=== PATIENT | male | born 1940 | race Caucasian/White ===

== ENCOUNTER 2020-05-14 12:01 | Inpatient (IN) ==
[2020-05-14] MEDS ORDERED: DEXAMETHASONE SOD INJ 10 MG/ML VIAL IV ONE (12:31)
--- NOTE | 2020-05-14 12:51 | Emergency Department Note ---
History of Present Illness General Chief complaint: Cardiac Assessment Stated complaint: Back pain @ surgical site w/ EKG changes Time Seen by Provider: 05/14/20 12:02 History of Present Illness Provider complaint: EKG changes fever hypoxia Onset (ago): day(s) 1 Associated symptoms: + fever/chills, + shortness of breath and + weakness; no chest pain, no cough and no headaches 79-year-old male from [facility] presents emergency department with EKG changes, hypoxia, and fever. Patient is at [facility] after suffering repeated falls and was admitted to [facility] for new onset atrial flutter and rhabdomyolysis. Patient is on Eliquis. Patient is also on digoxin. Patient states he feels weak as he normally does. He denies any chest pain or difficulty breathing at this time. Per the documentation sent by Cassie RICHEY from [facility] at 830 this morning the nurse reported the patient had temperature of nine 9.7 and oxygen saturation 86% on room air. Patient was placed on 2 L of oxygen which improved his oxygen saturation. An EKG was conducted and she a new left bundle branch block. Home Medications Medication Instructions Recorded Confirmed Type amlodipine 5 mg PO DIRECTED 05/14/20 05/14/20 History apixaban [Eliquis] 5 mg PO DIRECTED 05/14/20 05/14/20 History bimatoprost [Lumigan] 1 drp OPB DIRECTED 05/14/20 05/14/20 History digoxin 250 mcg PO DIRECTED 05/14/20 05/14/20 History gabapentin 300 mg PO DIRECTED 05/14/20 05/14/20 History metformin 500 mg PO DIRECTED 05/14/20 05/14/20 History potassium chloride 10 meq PO DIRECTED 05/14/20 05/14/20 History Past Med/Surg History Medical History (Updated 05/14/20 @ 15:46 by Gabriel Bah) Atrial flutter CVA (cerebral vascular accident) HTN (hypertension) No pertinent family history Recurrent falls Rhabdomyolysis Rib fracture UTI (urinary tract infection) Surgical History (Updated 05/14/20 @ 12:50 by Gabriel Bah) No pertinent past surgical history Social History Smoking Status: Former smoker Feels Safe at Home: Yes Review of Systems A total of 10 systems reviewed and were otherwise negative Physical Exam Vital Signs Vital Signs - 24 hr 05/14/20 12:11 05/14/20 12:12 05/14/20 12:16 Temperature 36.9 C Temperature Source Oral Pulse Rate 70 69 72 Pulse Rate [Apical] Pulse Rate from SpO2 Sensor 70 Respiratory Rate 19 17 18 Blood Pressure 131/62 131/62 Blood Pressure [Left Arm] Blood Pressure Mean 78 85 Blood Pressure Mean [Left Arm] Pulse Oximetry 94 94 Oxygen Delivery Method Room Air Room Air Oxygen Flow Rate Sepsis Recent Fever Within 48 Hours No Sepsis New/Unexplained Change in Mental Status N/A Sepsis Action Taken by Nursing No Action Required 05/14/20 12:20 05/14/20 12:30 05/14/20 12:40 Temperature Temperature Source Pulse Rate 65 69 66 Pulse Rate [Apical] Pulse Rate from SpO2 Sensor 68 69 66 Respiratory Rate 22 24 Blood Pressure Blood Pressure [Left Arm] Blood Pressure Mean Blood Pressure Mean [Left Arm] Pulse Oximetry 92 93 98 Oxygen Delivery Method Room Air Oxygen Flow Rate Sepsis Recent Fever Within 48 Hours Sepsis New/Unexplained Change in Mental Status Sepsis Action Taken by Nursing 05/14/20 12:50 05/14/20 12:53 05/14/20 13:00 Temperature Temperature Source Pulse Rate 63 66 65 Pulse Rate [Apical] Pulse Rate from SpO2 Sensor 63 67 65 Respiratory Rate 24 23 Blood Pressure 127/61 128/62 Blood Pressure [Left Arm] Blood Pressure Mean 84 88 Blood Pressure Mean [Left Arm] Pulse Oximetry 98 99 93 Oxygen Delivery Method Oxygen Flow Rate Sepsis Recent Fever Within 48 Hours Sepsis New/Unexplained Change in Mental Status Sepsis Action Taken by Nursing 05/14/20 13:01 05/14/20 13:03 05/14/20 13:10 Temperature Temperature Source Pulse Rate 65 64 Pulse Rate [Apical] 66 Pulse Rate from SpO2 Sensor 65 64 Respiratory Rate 24 20 24 Blood Pressure Blood Pressure [Left Arm] 128/62 Blood Pressure Mean Blood Pressure Mean [Left Arm] 84 Pulse Oximetry 93 97 98 Oxygen Delivery Method Room Air Oxygen Flow Rate Sepsis Recent Fever Within 48 Hours Sepsis New/Unexplained Change in Mental Status Sepsis Action Taken by Nursing 05/14/20 13:20 05/14/20 13:30 05/14/20 13:31 Temperature Temperature Source Pulse Rate 65 64 65 Pulse Rate [Apical] Pulse Rate from SpO2 Sensor 62 64 65 Respiratory Rate 22 22 Blood Pressure 119/60 Blood Pressure [Left Arm] Blood Pressure Mean 89 Blood Pressure Mean [Left Arm] Pulse Oximetry 98 98 98 Oxygen Delivery Method Oxygen Flow Rate Sepsis Recent Fever Within 48 Hours Sepsis New/Unexplained Change in Mental Status Sepsis Action Taken by Nursing 05/14/20 13:40 05/14/20 13:50 05/14/20 14:00 Temperature Temperature Source Pulse Rate 62 63 62 Pulse Rate [Apical] Pulse Rate from SpO2 Sensor 63 64 62 Respiratory Rate 22 24 Blood Pressure 121/67 Blood Pressure [Left Arm] Blood Pressure Mean 89 Blood Pressure Mean [Left Arm] Pulse Oximetry 99 97 99 Oxygen Delivery Method Nasal Cannula Oxygen Flow Rate 1 Sepsis Recent Fever Within 48 Hours Sepsis New/Unexplained Change in Mental Status Sepsis Action Taken by Nursing 05/14/20 14:01 05/14/20 14:10 05/14/20 14:20 Temperature Temperature Source Pulse Rate 69 64 Pulse Rate [Apical] Pulse Rate from SpO2 Sensor 64 63 Respiratory Rate 18 24 21 Blood Pressure Blood Pressure [Left Arm] Blood Pressure Mean Blood Pressure Mean [Left Arm] Pulse Oximetry 98 100 Oxygen Delivery Method Nasal Cannula Nasal Cannula Oxygen Flow Rate 1 1 Sepsis Recent Fever Within 48 Hours Sepsis New/Unexplained Change in Mental Status Sepsis Action Taken by Nursing Physical Exam GENERAL: He is oriented to person, place, and time. He appears well-developed and well-nourished. He does not appear distressed. HENT: Exam performed. - Head: Normocephalic and atraumatic. - Right Ear: External ear normal. No mastoid tenderness. - Left Ear: External ear normal. No mastoid tenderness. - Mouth/Throat: The oropharynx is clear and moist. No trismus in the jaw. No dental abscesses or uvula swelling. No oropharyngeal exudate or tonsillar abscesses. EYES: Conjunctivae and EOM are normal. Pupils are equal, round, and reactive to light. Right eye exhibits no discharge. Left eye exhibits no discharge. No scleral icterus. NECK: Normal range of motion. Neck supple. No JVD present. No spinous process tenderness present. No carotid bruit present. No rigidity. No tracheal deviation and normal range of motion present. No Brudzinski's sign and no Kernig's sign noted. CV: Normal rate, regular rhythm, normal heart sounds and intact distal pulses. There is no peripheral edema. Palpable radial pulses bue. PULM/CHEST: Effort normal and breath sounds normal. No respiratory distress. No stridor. He has no wheezes. He has no rales. ABD: The abdomen is soft. Bowel sounds are normal. He has no distension. No mass is present. There is no tenderness. There is no rebound, no guarding, no Starr's sign and no tenderness at McBurney's point. Rovsig negative. MUSC/SKEL: Normal range of motion. There is no peripheral edema, tenderness or deformity. LYMPH: No cervical adenopathy. NEURO: He is alert and oriented to person, place, and time. He has normal strength. No cranial nerve deficit or sensory deficit. Coordination and gait normal. GCS eye subscore is 4. GCS verbal subscore is 5. GCS motor subscore is 6. Cerebellar tests wnl. SKIN: Large amount of ecchymosis over the patient's right chest wall and right upper extremity. Patient states this is from his previous fall which she was seen at [facility] for PSYCH: He has a normal mood and affect. Behavior is normal. Judgment and thought content normal. Course Course 1202: The patient was evaluated in room B8. A complete history and physical exam was performed. Patient was seen in full airborne precautions. Patient was seen in N95's, gloves, gowns, face shield by myself and staff. Cardiac monitoring: An order was placed for continuous cardiac monitoring. The monitor shows a rate of 70 with sinus rhythm 1221: EKG shows sinus rhythm with rate of 70. HI 328 QRS 184 QTc 527. Left bundle branch block is present. There is discordant ST elevation measuring at 4 mm in leads V1, V2, V3, no true sgarBosa criteria at this time. When compared with the EKG from the patient's records from [facility] the patient had an EKG done on April 28, 2020 which showed a sinus rhythm with a rate of 87. HI QRS and QTc intervals within normal limits. There is no left bundle branch block present. There is no ST elevation or ST depression. I did discuss today's EKG findings with Dr. Euceda cardiology who states that given the patient does not have any active chest pain we should trend his troponins and there is no need for activation of the cath team at this point. He does state that if the patient starts vomiting chest pain or has significant changes in his presentation that we can reevaluate activating the Health Care Legal Assistant. 1309: Patient not reporting any chest pain or difficulty breathing at this time. Patient's oxygen saturation is within normal limits on room air. Repeat EKG showed sinus rhythm with a rate of 65. QRS 194. QTc 476. Left bundle branch block is again present. Again there is discordant ST elevation measuring 4 mm with no true sgarbosa criteria. 1530: Vital signs stable. Patient's oxygen saturation was stable on room air greater than 94% however he did feel better with 1 L nasal cannula so the patient was put on 1 L nasal cannula. The patient is COVID-19 positive. Patient's troponin is negative. Lactic acid 2.1. Digoxin level is 2.5. Patient is not taking too much of his digoxin intentionally as he has been receiving all his medications from [facility]. Potassium within normal limits. Spoke with cardiology Dr. Malcolm [phone] who states to hold the patient's digoxin, no need for Digibind at this time. Case was discussed with [facility] hospitalist Dr. Kauffman who will admit the patient. Administered Medications Discontinued Medications Dexamethasone (Dexamethasone Sod Inj 10 Mg/Ml Vial) 6 mg IV NOW ONE Stop: 05/14/20 12:32 Last Admin: 05/14/20 12:56 Dose: 6 mg Documented by: [id number] Medical Decision Making Laboratory Data Result diagrams: 05/14/20 12:07 05/14/20 12:07 Lab Results 05/14/20 05/14/20 05/14/20 Range/Units 12:07 12:07 12:07 WBC 9.07 (4.8-10.8) K/uL RBC 3.01 L (4.7-6.1) M/uL Hgb 9.2 L (14.0-18.0) g/dL Hct 28.9 L (42-52) % MCV 96.0 (80-100) fL MCH 30.6 (25-34) pg MCHC 31.8 L (32-36) g/dL RDW Std Deviation 69.8 H (36.4-46.3) fL RDW Coeff of Fannie 20.6 H (11.5-14.5) % Plt Count 242 (130-400) K/uL MPV 9.9 (7.4-10.4) fL Immature Gran % (Auto) 0.2 % Neut % (Auto) 86.7 % Lymph % (Auto) 8.5 % [place] % (Auto) 4.4 % Eos % (Auto) 0.0 % Baso % (Auto) 0.2 % Neut # (Auto) 7.86 H (1.4-6.5) K/uL Lymph # (Auto) 0.77 L (1.2-3.4) K/uL [place] # (Auto) 0.40 (0.11-0.59) K/uL Eos # (Auto) 0.00 (0-0.5) K/uL Baso # (Auto) 0.02 (0-0.2) K/uL Immature Gran # (Auto) 0.02 (0.00-0.02) K/uL Anisocytosis Present PT 13.2 H (9.0-12.0) Seconds INR 1.3 H (0.9-1.1) APTT 36.5 H (21.0-31.0) Seconds PTT Ratio 1.3 Sodium 135 L (136-145) mmol/L Potassium 4.4 (3.5-5.1) mmol/L Chloride 103 (98-107) mmol/L Carbon Dioxide 28 (21-32) mmol/L Anion Gap 4.0 (3-11) BUN 22 H (7-18) mg/dl Creatinine 1.59 H (0.6-1.4) mg/dl Est Cr Clr Drug Dosing 43.3 ml/min Est GFR ( Amer) 47.5 Est GFR (Non-Af Amer) 41.0 BUN/Creatinine Ratio 13.9 (10-20) Glucose 263 H (70-99) mg/dl Lactate (0.4-2.0) mmol/L Calcium 7.9 L (8.5-10.1) mg/dl Magnesium 2.2 (1.8-2.4) mg/dl Total Bilirubin 1.2 H (0.2-1) mg/dl AST 26 (15-37) U/L ALT 31 (12-78) U/L Alkaline Phosphatase 124 H (45-117) U/L Total Creatine Kinase (39-308) U/L Troponin I < 0.015 (0-0.045) ng/ml Total Protein 7.0 (6.4-8.2) gm/dl Albumin 2.6 L (3.4-5.0) gm/dl Globulin 4.4 H (2.5-4.0) gm/dl Albumin/Globulin Ratio 0.6 L (0.9-2) Procalcitonin (0-0.5) ng/ml Urine Color Urine Appearance (Clear) Urine pH (4.5-7.5) Ur Specific [place] (1.000-1.030) Urine Protein (Negative) Urine Glucose (UA) (Negative) Urine Ketones (Negative) Urine Blood (Negative) Urine Nitrite (Negative) Urine Bilirubin (Negative) Urine Urobilinogen (Negative) Ur Leukocyte Esterase (Negative) Urine WBC (Auto) (0-5) /hpf Urine RBC (Auto) (0-4) /hpf U Hyaline Cast (Auto) (0-5) /lpf U Epithel Cells (Auto) (0-5) /lpf Urine Bacteria (Auto) (Negative) Digoxin (0.8-2.0) ng/ml COVID-19 Eval Order COVID-19 PCR (Negative) Influenza Type A (PCR) (Neg) Influenza Type B (PCR) (Neg) RSV (RT-PCR) (Neg) 05/14/20 05/14/20 05/14/20 Range/Units 12:07 12:07 12:07 WBC (4.8-10.8) K/uL RBC (4.7-6.1) M/uL Hgb (14.0-18.0) g/dL Hct (42-52) % MCV (80-100) fL MCH (25-34) pg MCHC (32-36) g/dL RDW Std Deviation (36.4-46.3) fL RDW Coeff of Fannie (11.5-14.5) % Plt Count (130-400) K/uL MPV (7.4-10.4) fL Immature Gran % (Auto) % Neut % (Auto) % Lymph % (Auto) % [place] % (Auto) % Eos % (Auto) % Baso % (Auto) % Neut # (Auto) (1.4-6.5) K/uL Lymph # (Auto) (1.2-3.4) K/uL [place] # (Auto) (0.11-0.59) K/uL Eos # (Auto) (0-0.5) K/uL Baso # (Auto) (0-0.2) K/uL Immature Gran # (Auto) (0.00-0.02) K/uL Anisocytosis PT (9.0-12.0) Seconds INR (0.9-1.1) APTT (21.0-31.0) Seconds PTT Ratio Sodium (136-145) mmol/L Potassium (3.5-5.1) mmol/L Chloride (98-107) mmol/L Carbon Dioxide (21-32) mmol/L Anion Gap (3-11) BUN (7-18) mg/dl Creatinine (0.6-1.4) mg/dl Est Cr Clr Drug Dosing ml/min Est GFR ( Amer) Est GFR (Non-Af Amer) BUN/Creatinine Ratio (10-20) Glucose (70-99) mg/dl Lactate 2.1 H* (0.4-2.0) mmol/L Calcium (8.5-10.1) mg/dl Magnesium (1.8-2.4) mg/dl Total Bilirubin (0.2-1) mg/dl AST (15-37) U/L ALT (12-78) U/L Alkaline Phosphatase (45-117) U/L Total Creatine Kinase 49 (39-308) U/L Troponin I (0-0.045) ng/ml Total Protein (6.4-8.2) gm/dl Albumin (3.4-5.0) gm/dl Globulin (2.5-4.0) gm/dl Albumin/Globulin Ratio (0.9-2) Procalcitonin 0.36 (0-0.5) ng/ml Urine Color Urine Appearance (Clear) Urine pH (4.5-7.5) Ur Specific [place] (1.000-1.030) Urine Protein (Negative) Urine Glucose (UA) (Negative) Urine Ketones (Negative) Urine Blood (Negative) Urine Nitrite (Negative) Urine Bilirubin (Negative) Urine Urobilinogen (Negative) Ur Leukocyte Esterase (Negative) Urine WBC (Auto) (0-5) /hpf Urine RBC (Auto) (0-4) /hpf U Hyaline Cast (Auto) (0-5) /lpf U Epithel Cells (Auto) (0-5) /lpf Urine Bacteria (Auto) (Negative) Digoxin (0.8-2.0) ng/ml COVID-19 Eval Order COVID-19 PCR (Negative) Influenza Type A (PCR) (Neg) Influenza Type B (PCR) (Neg) RSV (RT-PCR) (Neg) 05/14/20 05/14/20 05/14/20 Range/Units 13:05 13:07 13:22 WBC (4.8-10.8) K/uL RBC (4.7-6.1) M/uL Hgb (14.0-18.0) g/dL Hct (42-52) % MCV (80-100) fL MCH (25-34) pg MCHC (32-36) g/dL RDW Std Deviation (36.4-46.3) fL RDW Coeff of Fannie (11.5-14.5) % Plt Count (130-400) K/uL MPV (7.4-10.4) fL Immature Gran % (Auto) % Neut % (Auto) % Lymph % (Auto) % [place] % (Auto) % Eos % (Auto) % Baso % (Auto) % Neut # (Auto) (1.4-6.5) K/uL Lymph # (Auto) (1.2-3.4) K/uL [place] # (Auto) (0.11-0.59) K/uL Eos # (Auto) (0-0.5) K/uL Baso # (Auto) (0-0.2) K/uL Immature Gran # (Auto) (0.00-0.02) K/uL Anisocytosis PT (9.0-12.0) Seconds INR (0.9-1.1) APTT (21.0-31.0) Seconds PTT Ratio Sodium (136-145) mmol/L Potassium (3.5-5.1) mmol/L Chloride (98-107) mmol/L Carbon Dioxide (21-32) mmol/L Anion Gap (3-11) BUN (7-18) mg/dl Creatinine (0.6-1.4) mg/dl Est Cr Clr Drug Dosing ml/min Est GFR ( Amer) Est GFR (Non-Af Amer) BUN/Creatinine Ratio (10-20) Glucose (70-99) mg/dl Lactate (0.4-2.0) mmol/L Calcium (8.5-10.1) mg/dl Magnesium (1.8-2.4) mg/dl Total Bilirubin (0.2-1) mg/dl AST (15-37) U/L ALT (12-78) U/L Alkaline Phosphatase (45-117) U/L Total Creatine Kinase (39-308) U/L Troponin I (0-0.045) ng/ml Total Protein (6.4-8.2) gm/dl Albumin (3.4-5.0) gm/dl Globulin (2.5-4.0) gm/dl Albumin/Globulin Ratio (0.9-2) Procalcitonin (0-0.5) ng/ml Urine Color Urine Appearance (Clear) Urine pH (4.5-7.5) Ur Specific [place] (1.000-1.030) Urine Protein (Negative) Urine Glucose (UA) (Negative) Urine Ketones (Negative) Urine Blood (Negative) Urine Nitrite (Negative) Urine Bilirubin (Negative) Urine Urobilinogen (Negative) Ur Leukocyte Esterase (Negative) Urine WBC (Auto) (0-5) /hpf Urine RBC (Auto) (0-4) /hpf U Hyaline Cast (Auto) (0-5) /lpf U Epithel Cells (Auto) (0-5) /lpf Urine Bacteria (Auto) (Negative) Digoxin 2.5 H (0.8-2.0) ng/ml COVID-19 Eval Order CovFluRsv at [facility] COVID-19 PCR POSITIVE A* (Negative) Influenza Type A (PCR) Negative (Neg) Influenza Type B (PCR) Negative (Neg) RSV (RT-PCR) Negative (Neg) 05/14/20 Range/Units 14:19 WBC (4.8-10.8) K/uL RBC (4.7-6.1) M/uL Hgb (14.0-18.0) g/dL Hct (42-52) % MCV (80-100) fL MCH (25-34) pg MCHC (32-36) g/dL RDW Std Deviation (36.4-46.3) fL RDW Coeff of Fannie (11.5-14.5) % Plt Count (130-400) K/uL MPV (7.4-10.4) fL Immature Gran % (Auto) % Neut % (Auto) % Lymph % (Auto) % [place] % (Auto) % Eos % (Auto) % Baso % (Auto) % Neut # (Auto) (1.4-6.5) K/uL Lymph # (Auto) (1.2-3.4) K/uL [place] # (Auto) (0.11-0.59) K/uL Eos # (Auto) (0-0.5) K/uL Baso # (Auto) (0-0.2) K/uL Immature Gran # (Auto) (0.00-0.02) K/uL Anisocytosis PT (9.0-12.0) Seconds INR (0.9-1.1) APTT (21.0-31.0) Seconds PTT Ratio Sodium (136-145) mmol/L Potassium (3.5-5.1) mmol/L Chloride (98-107) mmol/L Carbon Dioxide (21-32) mmol/L Anion Gap (3-11) BUN (7-18) mg/dl Creatinine (0.6-1.4) mg/dl Est Cr Clr Drug Dosing ml/min Est GFR ( Amer) Est GFR (Non-Af Amer) BUN/Creatinine Ratio (10-20) Glucose (70-99) mg/dl Lactate (0.4-2.0) mmol/L Calcium (8.5-10.1) mg/dl Magnesium (1.8-2.4) mg/dl Total Bilirubin (0.2-1) mg/dl AST (15-37) U/L ALT (12-78) U/L Alkaline Phosphatase (45-117) U/L Total Creatine Kinase (39-308) U/L Troponin I (0-0.045) ng/ml Total Protein (6.4-8.2) gm/dl Albumin (3.4-5.0) gm/dl Globulin (2.5-4.0) gm/dl Albumin/Globulin Ratio (0.9-2) Procalcitonin (0-0.5) ng/ml Urine Color Yellow Urine Appearance Clear (Clear) Urine pH 6.0 (4.5-7.5) Ur Specific [place] 1.016 (1.000-1.030) Urine Protein Trace H (Negative) Urine Glucose (UA) Negative (Negative) Urine Ketones Trace H (Negative) Urine Blood Negative (Negative) Urine Nitrite Negative (Negative) Urine Bilirubin Negative (Negative) Urine Urobilinogen Negative (Negative) Ur Leukocyte Esterase Negative (Negative) Urine WBC (Auto) 1-5 (0-5) /hpf Urine RBC (Auto) 0-4 (0-4) /hpf U Hyaline Cast (Auto) 1-5 (0-5) /lpf U Epithel Cells (Auto) 20-30 H (0-5) /lpf Urine Bacteria (Auto) Negative (Negative) Digoxin (0.8-2.0) ng/ml COVID-19 Eval Order COVID-19 PCR (Negative) Influenza Type A (PCR) (Neg) Influenza Type B (PCR) (Neg) RSV (RT-PCR) (Neg) Imaging Data Radiologist's Impression: XR chest 1V portable HISTORY: 79 years-old Male SEPSIS acute sepsis COMPARISON: None TECHNIQUE: Portable AP view of the chest FINDINGS: Cardiac silhouette is moderately enlarged. Pulmonary vascular congestion. No pneumothorax. Thickening of the costophrenic angles with bibasilar opacities. Degenerative changes of the shoulders and spine. Spinal stimulator device is noted overlying the mid aspect of the lower thoracic spine. IMPRESSION: 1. Cardiomegaly with pulmonary vascular congestion. 2. Trace pleural effusions with bibasilar densities suggestive of atelectasis versus pneumonitis. ACT 112: Negative or not required by law. The above report was generated using voice recognition software. It may contain grammatical, syntax or spelling errors. Electronically signed by: Cali Acosta M.D. 05/14/2020 2:26 PM Dictated: 05/14/20 1425 Transcribed: 05/14/20 142 ECG Data Additional Comments: EKG #1 at 1211: sinus rhythm with rate of 70. HI 328 QRS 184 QTc 527. Left bundle branch block is present. There is discordant ST elevation measuring at 4 mm in leads V1, V2, V3, no true sgarBosa criteria at this time. When compared with the EKG from the patient's records from [facility] the patient had an EKG done on April 28, 2020 which showed a sinus rhythm with a rate of 87. HI QRS and QTc intervals within normal limits. There is no left bundle branch block present. There is no ST elevation or ST depression. EKG #2 at 1302: sinus rhythm with a rate of 65. QRS 194. QTc 476. Left bundle branch block is again present. Again there is discordant ST elevation measuring 4 mm with no true sgarbosa criteria. No change from the previous EKG. [facility] Narrative 1202: The patient was evaluated in room B8. A complete history and physical exam was performed. Patient was seen in full airborne precautions. Patient was seen in N95's, gloves, gowns, face shield by myself and staff. Cardiac monitoring: An order was placed for continuous cardiac monitoring. The monitor shows a rate of 70 with sinus rhythm 1221: EKG shows sinus rhythm with rate of 70. HI 328 QRS 184 QTc 527. Left bundle branch block is present. There is discordant ST elevation measuring at 4 mm in leads V1, V2, V3, no true sgarBosa criteria at this time. When compared with the EKG from the patient's records from [facility] the patient had an EKG done on April 28, 2020 which showed a sinus rhythm with a rate of 87. HI QRS and QTc intervals within normal limits. There is no left bundle branch block present. There is no ST elevation or ST depression. I did discuss today's EKG findings with Dr. Euceda cardiology who states that given the patient does not have any active chest pain we should trend his troponins and there is no need for activation of the cath team at this point. He does state that if the patien t starts vomiting chest pain or has significant changes in his presentation that we can reevaluate activating the Health Care Legal Assistant. 1309: Patient not reporting any chest pain or difficulty breathing at this time. Patient's oxygen saturation is within normal limits on room air. Repeat EKG showed sinus rhythm with a rate of 65. QRS 194. QTc 476. Left bundle branch block is again present. Again there is discordant ST elevation measuring 4 mm with no true sgarbosa criteria. 1530: Vital signs stable. Patient's oxygen saturation was stable on room air greater than 94% however he did feel better with 1 L nasal cannula so the patient was put on 1 L nasal cannula. The patient is COVID-19 positive. Patient's troponin is negative. Lactic acid 2.1. Digoxin level is 2.5. Patient is not taking too much of his digoxin intentionally as he has been receiving all his medications from [facility]. Potassium within normal limits. Spoke with cardiology Dr. Malcolm [phone] who states to hold the patient's digoxin, no need for Digibind at this time. Case was discussed with [facility] hospitalist Dr. Kauffman who will admit the patient. Impression & Plan COVID-19, Left bundle branch block, Lactic acidemia Discharge Plan Visit Data Chief Complaint: Cardiac Assessment Stated Complaint: Back pain @ surgical site w/ EKG changes ED Provider: Gabriel Bah Discharge Problem: COVID-19, Left bundle branch block, Lactic acidemia Patient Disposition: Admitted As Inpatient Forms Stand Alone Forms: My [facility] Prescriptions Prescriptions: No Action amlodipine 5 mg tablet 5 mg PO DIRECTED RF: 0 digoxin 250 mcg (0.25 mg) tablet 250 mcg PO DIRECTED RF: 0 gabapentin 300 mg capsule 300 mg PO DIRECTED RF: 0 metformin 500 mg tablet extended release 24 hr 500 mg PO DIRECTED RF: 0 potassium chloride 10 mEq tablet,ER particles/crystals 10 meq PO DIRECTED RF: 0 Lumigan 0.01 % drops 1 drp OPB DIRECTED RF: 0 Eliquis 5 mg tablet 5 mg PO DIRECTED RF: 0 Referrals Referrals: [facility] [Primary Care Provider] -
[2020-05-14 12:52] LABS: Basophils # (auto) 0.02 K/uL (0-0.2); Basophils % (auto) 0.2 %; Hematocrit (blood only) 28.9 % (42-52); Hemoglobin 9.2 g/dL (14.0-18.0); Immature Granulocytes # (auto) 0.02 K/uL (0.00-0.02); Immature Granulocytes % (auto) 0.2 %; Lymphocytes # (auto) 0.77 K/uL (1.2-3.4); Lymphocytes % (auto) 8.5 %; Mean Corpuscular Hemoglobin 30.6 pg (25-34); Mean Corpuscular Hgb Conc 31.8 g/dL (32-36); Mean Platelet Volume 9.9 fL (7.4-10.4); Monocytes % (auto) 4.4 %; Neutrophils # (auto) 7.86 K/uL (1.4-6.5); Neutrophils % (auto) 86.7 %; Platelet Count 242 K/uL (130-400); RDW Coefficient of Variation 20.6 % (11.5-14.5); RDW Standard Deviation 69.8 fL (36.4-46.3); Red Blood Count 3.01 M/uL (4.7-6.1); White Blood Count 9.07 K/uL (4.8-10.8)
[2020-05-14 13:12] LABS: Alanine Aminotransferase 31 U/L (12-78); Albumin Level 2.6 gm/dl (3.4-5.0); Aspartate Aminotransferase 26 U/L (15-37); BUN Creatinine Ratio 13.9 (10-20); Blood Urea Nitrogen 22 mg/dl (7-18); Calcium 7.9 mg/dl (8.5-10.1); Carbon Dioxide 28 mmol/L (21-32); Chloride 103 mmol/L (98-107); Creatinine Clr Calc Pharmacy 43.3 ml/min; Est GFR (African American) 47.5; Glucose 263 mg/dl (70-99); Magnesium 2.2 mg/dl (1.8-2.4); Potassium 4.4 mmol/L (3.5-5.1); Sodium 135 mmol/L (136-145)
[2020-05-14 13:14] LABS: INR 1.3 (0.9-1.1); Partial Thromboplastin Ratio 1.3; Partial Thromboplastin Time 36.5 Seconds (21.0-31.0); Prothrombin Time 13.2 Seconds (9.0-12.0)
[2020-05-14 13:17] LABS: Albumin Globulin Ratio 0.6 (0.9-2); Alkaline Phosphatase 124 U/L (45-117); Anisocytosis Present; Bilirubin,Total 1.2 mg/dl (0.2-1); Globulin 4.4 gm/dl (2.5-4.0); Troponin I < 0.015 ng/ml (0-0.045)
[2020-05-14 14:05] LABS: Influenza A virus by PCR Negative (Neg); Influenza B virus by PCR Negative (Neg); RSV by PCR Negative (Neg)
[2020-05-14 14:10] LABS: SARS CoV2 RNA(COVID-19) InHosp POSITIVE (Negative)
--- NOTE | 2020-05-14 14:27 | XRay Report ---
XR chest 1V portable HISTORY: 79 years-old Male SEPSIS acute sepsis COMPARISON: None TECHNIQUE: Portable AP view of the chest FINDINGS: Cardiac silhouette is moderately enlarged. Pulmonary vascular congestion. No pneumothorax. Thickening of the costophrenic angles with bibasilar opacities. Degenerative changes of the shoulders and spine . Spinal stimulator device is noted overlying the mid aspect of the lower thoracic spine. IMPRESSION: 1. Cardiomegaly with pulmonary vascular congestion. 2. Trace pleural effusions with bibasilar densities suggestive of atelectasis versus pneumonitis. ACT 112: Negative or not required by law. The above report was generated using voice recognition software. It may contain grammatical, syntax o r spelling errors. Electronically signed by: Cali Acosta M.D. 05/14/2020 2:26 PM
[2020-05-14 14:37] LABS: Appearance Urine Clear (Clear); Bacteria Urine Automated Negative (Negative); Bilirubin Urine Negative (Negative); Blood Urine Negative (Negative); Color Urine Yellow; Epithelial Cell Urine Auto 20-30 /lpf (0-5); Glucose Urine UA Negative (Negative); Ketones Urine Trace (Negative); Leukocyte Esterase Urine Negative (Negative); Nitrite Urine Negative (Negative); Protein Urine Trace (Negative); RBC Urine Automated 0-4 /hpf (0-4); Specific Gravity Urine 1.016 (1.000-1.030); Urobilinogen Urine Negative (Negative)
--- NOTE | 2020-05-14 16:54 | History & Physical Report ---
Date of Service May 14, 2020 Assessment & Plan (1) COVID-19: Unclear onset of symptoms but tested negative at [facility]. Sudden decline today. Dexamethasone 6 mg IV daily Remdesivir IV 5 day course Convalescent plasma (2) Hypoxia: Aim O2 sats > 90% (3) Left bundle branch block: New onset since April 28. No acute chest pain Serially trend troponin. Hold digoxin and propafenone pending cardiology consult. (4) Pulmonary edema: Treat as possible CHF in setting of new LBBB Low Na, heart healthy diet, fluid restrict 1200ml IV lasix 20mg IV - assess response in Cr with AM labs Strict I&Os Daily weights (5) Elevated serum creatinine: Unclear baseline to know whether this is KYLEE. Hypervolemic on exam. Monitor with IV lasix as above. (6) Pericardial effusion: Distant HS on auscultation. Noted in [facility]. Repeat TTE as above. (7) Lactic acidemia: Suspect due to COVID-19, hypoxia. Resolved 2.1 -> 1.2 (8) Atrial flutter: Paroxysmal. New diagnosis at [facility] admission. Monitor on telemetry for recurrence. Anticoagulation with Eliquis 5mg BID (9) HTN (hypertension): Hold amlodipine pending stability in blood pressure overnight. May be restarted in AM if BP stable. (10) Normocytic anemia: Unclear baseline. B12, iron studies with AM labs (11) Type 2 diabetes mellitus: HbA1C with AM labs Hold metformin Consult pharmacy for glycemic control with basal bolus insulin in setting of steroid use. (12) Glaucoma: Lumigan eye drops QPM (13) Rheumatoid arthritis: Continue methotrexate once weekly with folic acid supplementation. Admission and Anticipated Discharge Date Admission Date: 05/14/2020 History of Present Illness Chief Complaint: Shortness of breath , hypoxia Primary Care Provider: [facility] Kemar Harden is a 79-year-old male who presents to the ER from [facility] inpatient rehabilitation due to shortness of breath, headache and new onset left bundle branch block. The patient reports he feels well without any chest pain or shortness of breath. He is unable to give me much of a timeline of events or why he is in the ER today. From [facility] notes: he was recently admitted to [facility] from April 26 after being found on the ground for approximately 30 minutes. He was having recurrent falls at home for 2 weeks prior to admission. In the emergency room he was noted to have new onset atrial flutter with rate in the 140s and febrile at 101.3. Chest x-ray demonstrated left pleural effusion and a left 7th rib fracture without pneumothorax. There was a small to moderate pericardial effusion. CT cervical spine and head were notably negative. Labs indicated KYLEE with rhabdomyolysis. He had a positive urinalysis and was started on IV Rocephin and azithromycin presumably to cover for a bacterial pneumonia. He was discharged to [facility] on May 03. He was initially doing well but had a sudden decline around 8:30am this morning with hypoxia, shortness of breath, altered mental state change - temp 99.7, O2 sats 86%. He was transported via EMS to the ER for further workup and treatment. Updated his over the phone. She reports no direct contact with the patient since his hospitalization in [place]. ER physician discussed with Dr Euceda and Dr Malcolm regarding new onset LBBB. Recommended holding digoxin. Trending troponins. Given asymptomatic and troponin negative no need for urgent catheterization. Allergies Allergy/AdvReac Type Severity Reaction Status Date / Time No Known Allergies Allergy Unverified 05/14/20 17:09 Home Medications Medication Instructions Recorded Confirmed Type acetaminophen 325 mg PO QID PRN 05/14/20 05/14/20 History amlodipine 5 mg PO DAILY 05/14/20 05/14/20 History apixaban [Eliquis] 5 mg PO BID 05/14/20 05/14/20 History ascorbic acid (vitamin C) 500 mg PO BID 05/14/20 05/14/20 History aspirin 81 mg PO DAILY 05/14/20 05/14/20 History bimatoprost [Lumigan] 1 drp OPB QPM 05/14/20 05/14/20 History bisacodyl 10 mg CA DAILY PRN 05/14/20 05/14/20 History cephalexin 500 mg PO QID 05/14/20 05/14/20 History digoxin 250 mcg PO DAILY 05/14/20 05/14/20 History docusate sodium 100 mg PO BID 05/14/20 05/14/20 History famotidine 20 mg PO BID 05/14/20 05/14/20 History folic acid 1 mg PO DAILY 05/14/20 05/14/20 History gabapentin 300 mg PO TID 05/14/20 05/14/20 History insulin regular human [Humulin R 0 unit SUBCUT ACHS 05/14/20 05/14/20 History Regular U-100 Insuln] melatonin 3 mg PO HS 05/14/20 05/14/20 History metformin 500 mg PO DAILY 05/14/20 05/14/20 History methotrexate sodium [Methotrexate 17.5 mg PO WK 05/14/20 05/14/20 History (Anti-Rheumatic)] potassium chloride 10 meq PO DAILY 05/14/20 05/14/20 History propafenone 300 mg PO Q8H 05/14/20 05/14/20 History zinc sulfate 220 mg PO DAILY 05/14/20 05/14/20 History Past Med/Surg History Medical History (Updated 05/15/20 @ 17:22 by Haris Malcolm MD) Chronic back pain Claustrophobia CVA (cerebral vascular accident) 2013 Glaucoma History of prescription drug abuse HTN (hypertension) Hyperlipidemia No pertinent family history Recurrent falls Rhabdomyolysis Rheumatoid arthritis Rib fracture Type 2 diabetes mellitus UTI (urinary tract infection) Surgical History History of back surgery L3-5 laminectomy and fusion 2018 Social History Smoking Status: Former smoker Second Hand Exposure: No; Do You Dip or Chew Tobacco: No; Tobacco Cessation Education Requested by Patient: No Hx Alcohol Use: No Hx Substance Use: No Preferred Language: Gabonese Communication Ability: Effective Beliefs That Will Affect Care: None Current Living Situation: Spouse Other Information That Helps Us Care for You: No Feels Safe at Home: Yes Safety Concerns: Feels Safe At This Time Assistive Devices: Cane, Glasses and Walker Review of Systems Review of Systems: All systems reviewed & are unremarkable except as noted in HPI & below Gastrointestinal: + constipation (Last Bm 4 days ago) Physical Exam Constitutional: well developed and well nourished; no acute distress Eyes: PERRL, conjunctivae normal, anicteric sclerae ENMT: external ear and nose normal, oropharynx normal Neck: trachea midline, no thyromegaly Respiratory: normal respiratory effort, lungs clear to auscultation Cardiovascular: RRR, no murmur, no edema Gastrointestinal (Abdomen): normal bowel sounds, soft, nontender, no hepatosplenomegaly Musculoskeletal: no cyanosis or clubbing, extremities motor strength 5/5 Skin: no rashes, warm and dry Neurologic: moves all extremities and awake; not confused Psychiatric: Orientation: alert and oriented x 3 Genitourinary: no CVA tenderness Results & Data Results & Data ([facility]) Vital Signs (Past 12 Hours) Vital Signs Temp Pulse Pulse Resp BP BP Pulse Ox 05/14/20 16:20 65 24 96 05/14/20 16:10 66 24 98 05/14/20 16:01 64 99 05/14/20 16:00 64 24 121/68 100 05/14/20 15:50 64 98 05/14/20 15:40 64 24 99 05/14/20 15:31 64 25 H 98 05/14/20 15:30 64 25 H 116/63 99 05/14/20 15:20 64 24 97 05/14/20 15:10 65 21 98 05/14/20 15:01 63 98 05/14/20 15:00 63 122/60 99 05/14/20 14:50 63 98 05/14/20 14:40 63 99 05/14/20 14:31 64 100 05/14/20 14:30 63 25 H 121/63 100 05/14/20 14:20 64 21 100 05/14/20 14:10 69 24 05/14/20 14:01 18 98 05/14/20 14:00 62 121/67 99 05/14/20 13:50 63 24 97 05/14/20 13:40 62 22 99 05/14/20 13:31 65 22 98 05/14/20 13:30 64 22 119/60 98 05/14/20 13:20 65 98 05/14/20 13:10 64 24 98 05/14/20 13:03 66 20 128/62 97 05/14/20 13:01 65 24 93 05/14/20 13:00 65 23 128/62 93 05/14/20 12:53 66 24 127/61 99 05/14/20 12:50 63 98 05/14/20 12:40 66 24 98 05/14/20 12:30 69 93 05/14/20 12:20 65 22 92 05/14/20 12:16 36.9 C 72 18 131/62 94 05/14/20 12:12 69 17 131/62 94 05/14/20 12:11 70 19 Diagnostic Findings XR chest 1V portable IMPRESSION: 1. Cardiomegaly with pulmonary vascular congestion. 2. Trace pleural effusions with bibasilar densities suggestive of atelectasis versus pneumonitis. ECG Indication: other (New onset LBBB) Rate (beats per minute): 80 Change: the following changes noted Additional Comments: Comparison across multiple EKGs from [facility] in the emergency room shows left bundle branch block is new from EKG on April 28, 2020 at which time he was in normal sinus rhythm with no acute ischemic changes. Code Status & VTE Plan Code Status Full - discussed with patient and his VTE Prophylaxis Plan VTE Prophylaxis will be ordered: Yes PG Care Time/CCT Total # of Minutes Spent Total Time Spent with Patient: Total time spent is greater than 50% in coordination of care (as documented) at patient's floor/unit and/or counseling patient: Coding Level of Care Code 19351 Initial Inpt Care Lvl 3 Diagnoses COVID-19 U07.1 Hypoxia R09.02 Left bundle branch block I44.7 Pulmonary edema J81.1 Elevated serum creatinine R79.89 Pericardial effusion I31.3 Lactic acidemia E87.2 Atrial flutter I48.92 HTN (hypertension) I10 Normocytic anemia D64.9 Type 2 diabetes mellitus E11.9 Glaucoma H40.9 Rheumatoid arthritis M06.9
[2020-05-14] MEDS ORDERED: ALUMINUM/MAGNESIUM SUSP 30 ML UDC PO PRN (18:12)
[2020-05-14] MEDS ORDERED: ONDANSETRON INJ 2 MG/ML 2 ML VIAL IV PRN (18:12)
[2020-05-14] MEDS ORDERED: POLYETHYLENE (MIRALAX) 17 GM PACK PO PRN (18:12)
[2020-05-14] MEDS ORDERED: ACETAMINOPHEN 325 MG TAB PO PRN (18:12)
[2020-05-14] MEDS ORDERED: NITROGLYCERIN SL 0.4 MG/TAB TAB SL PRN (18:12)
[2020-05-14 18:18] LABS: Hematocrit (blood only) 31.3 % (42-52)
[2020-05-14 18:29] LABS: D Dimer 2300 ug/L FEU (0-500)
[2020-05-14 18:43] LABS: C Reactive Protein 9.82 mg/dl (0-0.29); Creatine Kinase 42 U/L (39-308); Ferritin 770.9 ng/ml (8-388); Troponin I < 0.015 ng/ml (0-0.045)
[2020-05-14] MEDS ORDERED: PHARMACY GLYCEMIC MGMT CONSULT PRN (19:02)
[2020-05-14] MEDS ORDERED: INSULIN ASPART 100 UNITS/ML 3 ML PEN SC ONE (19:15)
[2020-05-14] MEDS ORDERED: CARBOHYDRATES FOR HYPOGLYCEMIA PO PRN (19:15)
[2020-05-14] MEDS ORDERED: DEXTROSE 50% 50 ML SYRINGE IV PRN (19:15)
[2020-05-14] MEDS ORDERED: GLUCOSE 40% GEL 15 GM TUBE PO PRN (19:15)
[2020-05-14] MEDS ORDERED: GLUCOSE 10 TABS/TUBE PO PRN (19:15)
[2020-05-14] MEDS ORDERED: GLUCAGON FOR INJ 1 MG VIAL SQ PRN (19:15)
[2020-05-14] MEDS ORDERED: INSULIN GLARGINE SOLOSTAR 100 UNITS/ML 3 ML PEN SC STA (19:33)
[2020-05-14] MEDS: INSULIN ASPART 100 UNITS/ML 3 ML PEN SC SCH ×2 (20:17→23:31)
[2020-05-14] MEDS: APIXABAN 5 MG TABLET PO SCH (20:48)
[2020-05-14] MEDS: GABAPENTIN 300 MG CAP PO SCH (20:48)
[2020-05-14] MEDS ORDERED: FUROSEMIDE 20 MG in SYRINGE 0 ML IV STA (21:10)
[2020-05-14] MEDS ORDERED: REMDESIVIR 200 MG in SODIUM CHLORIDE 0.9% 210 ML IV ONE (22:00)
[2020-05-14] MEDS ORDERED: INSULIN HUMAN REGULAR PER UNIT 4 UNITS in SYRINGE 3.96 ML IV ONE (23:45)
[2020-05-15] MEDS: INSULIN ASPART 100 UNITS/ML 3 ML PEN SC SCH ×6 (01:40→21:40)
[2020-05-15] MEDS: SODIUM CHLORIDE 0.9% 10ML FLUSH IV SCH ×2 (03:36→07:41)
[2020-05-15 07:27] LABS: Basophils # (auto) 0.01 K/uL (0-0.2); Basophils % (auto) 0.1 %; Hemoglobin 8.9 g/dL (14.0-18.0); Immature Granulocytes # (auto) 0.03 K/uL (0.00-0.02); Immature Granulocytes % (auto) 0.3 %; Lymphocytes # (auto) 1.06 K/uL (1.2-3.4); Lymphocytes % (auto) 8.8 %; Mean Corpuscular Hemoglobin 30.6 pg (25-34); Mean Corpuscular Hgb Conc 31.8 g/dL (32-36); Mean Corpuscular Volume 96.2 fL (80-100); Monocytes # (auto) 0.66 K/uL (0.11-0.59); Monocytes % (auto) 5.5 %; Neutrophils # (auto) 10.23 K/uL (1.4-6.5); Neutrophils % (auto) 85.3 %; Platelet Count 284 K/uL (130-400); RDW Standard Deviation 68.7 fL (36.4-46.3); Red Blood Count 2.91 M/uL (4.7-6.1); White Blood Count 11.99 K/uL (4.8-10.8)
[2020-05-15 07:58] LABS: Albumin Globulin Ratio 0.6 (0.9-2); Albumin Level 2.7 gm/dl (3.4-5.0); BUN Creatinine Ratio 16.7 (10-20); Bilirubin,Total 0.7 mg/dl (0.2-1); Calcium 8.3 mg/dl (8.5-10.1); Est GFR (African American) 57.9; Est GFR (Non-African American) 49.9; Globulin 4.5 gm/dl (2.5-4.0); Potassium 3.7 mmol/L (3.5-5.1); Total Protein 7.2 gm/dl (6.4-8.2)
[2020-05-15 08:04] LABS: Anisocytosis Present
--- NOTE | 2020-05-15 08:38 | Electrocardiogram Report ---
Test Reason : Blood Pressure : / mmHG Vent. Rate : 065 BPM Atrial Rate : 037 BPM P-R Int : 000 ms QRS Dur : 194 ms QT Int : 458 ms P-R-T Axes : 000 -23 109 degrees QTc Int : 476 ms Sinus rhythm with severe first degree A-V block Left bundle branch block Abnormal ECG When compared with ECG of 14-MAY-2020 12:11, P waves now visible Otherwise no significant change Confirmed by Haris Malcolm ([id number]) on 05/15/2020 8:38:25 AM Referred By: [facility] Confirmed By:Haris Malcolm
--- NOTE | 2020-05-15 08:38 | Electrocardiogram Report ---
Test Reason : Blood Pressure : / mmHG Vent. Rate : 070 BPM Atrial Rate : 070 BPM P-R Int : 328 ms QRS Dur : 184 ms QT Int : 488 ms P-R-T Axes : 000 -29 111 degrees QTc Int : 527 ms Probable Sinus rhythm with severe first degree A-V block (based on subsequent tracing) Left bundle branch block Abnormal ECG No previous ECGs available Confirmed by Haris Malcolm ([id number]) on 05/15/2020 8:37:42 AM Referred By: [facility] Confirmed By:Haris Malcolm
[2020-05-15] MEDS: FAMOTIDINE 20 MG TAB PO SCH ×2 (08:49→21:40)
[2020-05-15] MEDS: GABAPENTIN 300 MG CAP PO SCH ×3 (08:49→21:40)
[2020-05-15] MEDS: ASPIRIN 81 MG ECTAB PO SCH (08:49)
[2020-05-15] MEDS: FOLIC ACID 1 MG TAB PO SCH (08:49)
[2020-05-15] MEDS: APIXABAN 5 MG TABLET PO SCH ×2 (08:49→21:41)
[2020-05-15] MEDS: DOCUSATE SODIUM 100 MG CAP PO SCH ×2 (08:49→21:35)
[2020-05-15] MEDS: ZINC SULFATE 220 MG CAPSULE PO SCH (08:49)
[2020-05-15] MEDS: ASCORBIC ACID 500 MG TAB PO SCH ×2 (08:49→21:40)
[2020-05-15] MEDS ORDERED: dexAMETHasone 6 MG in SYRINGE 0 ML IV SCH (09:00)
--- NOTE | 2020-05-15 09:29 | XCELERA ---
[id number]
[2020-05-15] MEDS: INSULIN HUMAN NPH SC SCH (12:32)
--- NOTE | 2020-05-15 13:37 | Hospitalist Progress Note ---
Date of Service May 15, 2020 Assessment & Plan (1) Left bundle branch block: New onset since April 28. Thought to be from his high digoxin and propafenone. - Hold both per cardiology. - Recheck digoxin level in the AM. No need for Digibind. (2) COVID-19: Unclear onset of symptoms but tested negative at [facility]. Overall, he feels well with minimal shortness of breath. - Convalescent plasma given on 05/14. - Remdesivir IV 5 day course started by admission provider. - Dexamethasone 6 mg PO daily (End date: 05/23/2020) (3) Atrial flutter: Paroxysmal. New diagnosis at [facility] admission. - Anticoagulation with Eliquis 5mg BID - Monitor on telemetry for recurrence now that he's off digoxin and propafenone. If he does go back into atrial flutter, may need ablation vs. pacemaker. (4) Elevated serum creatinine: Unclear baseline to know whether this is KYLEE. Hypervolemic on admission. - Improving today. (5) Type 2 diabetes mellitus: HbA1C pending. - Hold metformin - Consulted pharmacy for glycemic control with basal bolus insulin in setting of steroid use. -> Stable sugars today. (6) Hypoxia: Aim O2 sats > 90%. - Presently needing only about 2 L NC to maintain sats. (7) Pulmonary edema: Treated as possible CHF in setting of new LBBB. Given Lasix 20mg IV on admission. - Low Na, heart healthy diet, fluid restrict 1200ml - Strict I&Os & daily weights - Hold off on further Lasix at this time as the patient appears euvolemic. (8) Pericardial effusion: Noted in [facility], but none noted here. - Monitor (9) HTN (hypertension): BP is 135/65 today. - Hold amlodipine for now given stability of BP. (10) Normocytic anemia: Stable over last two days. B12 normal. Ferritin high; consistent with acute inflammation. On MTX, so likely to be from that vs. anemia of chronic disease vs. combination. - Monitor (11) Glaucoma: - Lumigan eye drops QPM (12) Rheumatoid arthritis: - Continue methotrexate once weekly with folic acid supplementation. (13) DVT prophylaxis: Apixaban for atrial flutter Admission and Anticipated Discharge Date Admission Date: May 14, 2020 Subjective Feels mostly better today. Reports no fevers/chills, chest pain, shortness of breath, abdominal pain, nausea, or vomiting. Physical Exam Constitutional: WD/WN, vitals as above Eyes: EOM intact bilaterally; no conjunctival abnormality ENMT: external ear and nose normal, oropharynx normal Neck: trachea midline, no thyromegaly normal visual inspection Respiratory: normal respiratory effort, lungs clear to auscultation no respiratory distress Cardiovascular: RRR, no murmur, no edema Gastrointestinal (Abdomen): Inspection/Auscultation: abdomen normal to inspection; abdomen not distended Musculoskeletal: no cyanosis or clubbing, extremities motor strength 5/5 Skin: no rashes, warm and dry Neurologic: moves all extremities and awake Psychiatric: Orientation: alert, oriented to person and cooperative Results & Data Results & Data ([facility]) Vital Signs (Past 12 Hours) Vital Signs Temp Pulse Pulse Resp BP BP Pulse Ox 05/15/20 11:08 37.4 C 81 20 135/65 87 L 05/15/20 07:14 36.9 C 77 22 144/86 H 91 05/15/20 03:35 36.8 C 71 20 130/72 91 05/15/20 01:38 36.8 C 75 18 133/69 95 PG Care Time/CCT Total # of Minutes Spent Total Time Spent with Patient: Total time spent is greater than 50% in coordination of care (as documented) at patient's floor/unit and/or counseling patient: Coding Level of Care Code 04370 Subseq Hosp Care Lvl 3 Diagnoses Left bundle branch block I44.7 COVID-19 U07.1 Atrial flutter I48.92 Elevated serum creatinine R79.89 Type 2 diabetes mellitus E11.9 Hypoxia R09.02 Pulmonary edema J81.1 Pericardial effusion I31.3 HTN (hypertension) I10 Normocytic anemia D64.9 Glaucoma H40.9 Rheumatoid arthritis M06.9 DVT prophylaxis Z29.9
--- NOTE | 2020-05-15 14:41 | Pharmacy Report ---
Pharmacy Glycemic Short Note 2 - Date of Service May 15, 2020 - Glycemic Short BSG Results (Last 24 hours): 05/14/20 05/14/20 05/15/20 19:25 23:29 03:33 Glucose POC Glucose 235 H 301 H* 92 05/15/20 05/15/20 05/15/20 07:00 07:14 11:10 Glucose 95 POC Glucose 97 188 H OUTPATIENT ANTIDIABETIC REGIMEN: * metformin ASSESSMENT: * 79 year old admitted with COVID 19, started on remdesivir and DXM. Type 2 diabetic managed only on metformin at home per patient. State he is not on insulin. (however insulin listed on med rec - may need to evaluate further) * Received total of 34 units of insulin yesterday, of which 16 were basal to help cover steroids * Fasting BSG this AM 97 mg/dL - continues on steroid IV this morning / plan to start NPH this AM to help with coverage of steroid. Plan to start 18 units (~0.2 unit/kg) - slightly lower dosing d/t lantus still on board from last night * Unclear diabetic control at home, as A1c pending PLAN FOR INPATIENT GLYCEMIC CONTROL: * Hold outpatient oral diabetes medications * Basal insulin * NPH 18 units daily (0.2 unit/kg) * Bolus insulin * NovoLog per scale ACHS or Q6hrs while NPO * Goal Range: Low 110 mg/dL - High 140 mg/dL * Correction Factor: 15 mg/dL/unit * Nutritional / Prandial insulin per carb ratio of 1 unit per 6 grams CHO consumed PLAN FOR DISCHARGE: * tbd
--- NOTE | 2020-05-15 17:30 | Cardiology Consultation ---
Date of Consultation May 15, 2020 Assessment & Plan (1) Digoxin toxicity: (2) First degree atrioventricular block: (3) Left bundle branch block: (4) COVID-19: (5) Paroxysmal atrial flutter: Complex patient who actually appears clinically to be doing well. Despite abnormal ECG and presumed digoxin/propafenone toxicity, he is currently hemodynamically stable and in sinus rhythm. He still has a markedly prolonged FL interval and a new left bundle branch block, both likely conduction abnormalities from reduced digoxin clearance related to his acute illness (COVID-19). Continue to allow washout and hold all negative chronotropic medications, if he has recurrent atrial flutter would treat with small doses of IV beta-keyshawn to achieve rate control. He is on apixaban for anticoagulation for his paroxysmal atrial flutter, the need for this can be reevaluated depending upon maintenance of sinus rhythm (since his initial and only episode of atrial flutter may have been secondary to acute infection). There is currently no evidence of significant pericardial effusion, I re-looked at the echocardiogram and there is no more than trace effusion. This may have been an early phenomenon secondary to COVID-19 which has since resolved. He is not exhibiting symptoms of heart failure currently, suspect his chest x- ray findings are also related to his Covid infection. He could be prone to fluid retention secondary to high-dose steroids however, continue to monitor with use of PRN diuretic to maintain I/O balance. Will follow along with you. History of Present Illness Reason for Consultation: New onset left bundle branch block, atrial flutter, digoxin toxicity. Requesting Physician: Roman Kauffman MD Attending Physician: Ariel Crawford MD History of Present Illness 79-year-old man apparently without any long-term cardiac history who was recovering at [facility] from a 04/26/2020 [place] hospitalization for recurrent falls with rib fracture/new onset a flutter/small to moderate pericardial effusion, when he was noted to have a markedly abnormal ECG, he was transported by ambulance to the hospital and admitted yesterday for possible digoxin toxicity (digoxin level 2.5) as well as newly positive COVID-19 test. Details of his [place] hospitalization were not immediately available, but apparently he had been doing well at [facility] and had no specific complaints. His ECG in the ER here showed a rhythm that could have been accelerated id ioventricular, but given subsequent tracings was most likely sinus rhythm with severe first-degree AV block (FL interval 0.5 seconds) and left bundle branch block. Uneventful stay overnight, the patient had no specific complaints. His ECG does show some minor improvement in his FL interval (now 0.4 seconds) but he has persistent left bundle branch block. Echocardiogram showed normal systolic function with evidence of conduction system abnormality but no regional wall motion abnormalities and no pericardial effusion. Patient was comfortable at the time of my visit this afternoon. Allergies Allergy/AdvReac Type Severity Reaction Status Date / Time No Known Allergies Allergy Unverified 05/14/20 17:09 Home Medications Medication Instructions Recorded Confirmed Type acetaminophen 325 mg PO QID PRN 05/14/20 05/14/20 History amlodipine 5 mg PO DAILY 05/14/20 05/14/20 History apixaban [Eliquis] 5 mg PO BID 05/14/20 05/14/20 History ascorbic acid (vitamin C) 500 mg PO BID 05/14/20 05/14/20 History aspirin 81 mg PO DAILY 05/14/20 05/14/20 History bimatoprost [Lumigan] 1 drp OPB QPM 05/14/20 05/14/20 History bisacodyl 10 mg FL DAILY PRN 05/14/20 05/14/20 History cephalexin 500 mg PO QID 05/14/20 05/14/20 History digoxin 250 mcg PO DAILY 05/14/20 05/14/20 History docusate sodium 100 mg PO BID 05/14/20 05/14/20 History famotidine 20 mg PO BID 05/14/20 05/14/20 History folic acid 1 mg PO DAILY 05/14/20 05/14/20 History gabapentin 300 mg PO TID 05/14/20 05/14/20 History insulin regular human [Humulin R 0 unit SUBCUT ACHS 05/14/20 05/14/20 History Regular U-100 Insuln] melatonin 3 mg PO HS 05/14/20 05/14/20 History metformin 500 mg PO DAILY 05/14/20 05/14/20 History methotrexate sodium [Methotrexate 17.5 mg PO WK 05/14/20 05/14/20 History (Anti-Rheumatic)] potassium chloride 10 meq PO DAILY 05/14/20 05/14/20 History propafenone 300 mg PO Q8H 05/14/20 05/14/20 History zinc sulfate 220 mg PO DAILY 05/14/20 05/14/20 History Patient History Medical History Atrial flutter Chronic back pain Claustrophobia CVA (cerebral vascular accident) 2013 Glaucoma History of prescription drug abuse HTN (hypertension) Hyperlipidemia No pertinent family history Recurrent falls Rhabdomyolysis Rheumatoid arthritis Rib fracture Type 2 diabetes mellitus UTI (urinary tract infection) Surgical History History of back surgery L3-5 laminectomy and fusion 2018 Social History Smoking Status: Former smoker Second Hand Exposure: No; Do You Dip or Chew Tobacco: No; Tobacco Cessation Education Requested by Patient: No Hx Alcohol Use: No Hx Substance Use: No Preferred Language: Serbian Communication Ability: Effective Beliefs That Will Affect Care: None Current Living Situation: Spouse Other Information That Helps Us Care for You: No Feels Safe at Home: Yes Safety Concerns: Feels Safe At This Time Assistive Devices: Cane, Glasses and Walker Review of Systems Constitutional: + fatigue Eyes: no problem reported Ear, Nose, Mouth, Throat: no problem reported Respiratory: as per Subjective / HPI Cardiovascular: as per Subjective / HPI Gastrointestinal: no abdominal pain and no change in stools Musculoskeletal: no myalgia Integumentary: no rash and no new lesions Neurologic: + falls; no syncope Psychiatric: no problem reported Hematologic / Lymphatic: no easy bleeding Physical Exam Physical Exam: Elderly white male watching television, in no distress. Skin: no ecchymoses or generalized lesions. HEENT: unremarkable. Neck: Jugular venous pulse was at the clavicle, no carotid bruits. Lungs: Mildly decreased breath sounds but generally clear. Cardiac: regular rhythm, paradoxically split S2, faint heart tones, no obvious murmur or gallop. Abdomen: benign. Extremities: no edema, pulses intact. Neurologic: normal affect and conversation, nonfocal. Results & Data ([facility]) Vital Signs (Past 12 Hours) Vital Signs Temp Pulse Pulse Resp BP Pulse Ox 05/15/20 14:39 99.0 F 76 16 126/69 92 05/15/20 11:08 99.3 F 81 20 135/65 87 L 05/15/20 07:14 98.4 F 77 22 144/86 H 91 Laboratory Results WBC 11.9, hemoglobin 8.9, normal platelet count. INR 1.3 on admission. Normal electrolytes, BUN 23, creatinine 1.35. Troponin negative x4. Diagnostic Findings ECGs as noted in HPI. Echocardiogram with EF 55 to 60% with septal motion consistent with conduction abnormality. Mild mitral and tricuspid regurgitation with mild pulmonary hypertension. Chest x-ray with cardiomegaly with pulmonary vascular congestion and trace pleural effusions and bibasilar densities.
--- NOTE | 2020-05-15 18:23 | Electrocardiogram Report ---
Test Reason : Blood Pressure : / mmHG Vent. Rate : 080 BPM Atrial Rate : 080 BPM P-R Int : 338 ms QRS Dur : 154 ms QT Int : 392 ms P-R-T Axes : 038 -38 123 degrees QTc Int : 452 ms Sinus rhythm with severe first degree A-V davonte Left axis deviation Left bundle branch block Abnormal ECG When compared with ECG of 14-MAY-2020 13:02, IL interval has decreased QRS duration has decreased Confirmed by Haris Malcolm ([id number]) on 05/15/2020 6:23:31 PM Referred By: [facility] Confirmed By:Haris Malcolm
[2020-05-15] MEDS: MELATONIN 3 MG TAB PO SCH (21:35)
[2020-05-15] MEDS: REMDESIVIR 100 MG in SODIUM CHLORIDE 0.9% 230 ML IV SCH (21:41)
[2020-05-16 06:11] LABS: Estimated Average Glucose 108 mg/dl; Hemoglobin A1C 5.4 % (4.5-5.6)
[2020-05-16 06:40] LABS: Hematocrit (blood only) 30.3 % (42-52); Hemoglobin 9.7 g/dL (14.0-18.0); Mean Corpuscular Hemoglobin 30.7 pg (25-34); Mean Corpuscular Volume 95.9 fL (80-100); Mean Platelet Volume 10.2 fL (7.4-10.4); Platelet Count 282 K/uL (130-400); RDW Coefficient of Variation 20.4 % (11.5-14.5); RDW Standard Deviation 69.8 fL (36.4-46.3); Red Blood Count 3.16 M/uL (4.7-6.1)
[2020-05-16 07:16] LABS: BUN Creatinine Ratio 21.5 (10-20); Calcium 8.5 mg/dl (8.5-10.1); Creatinine Clr Calc Pharmacy 54.6 ml/min; Est GFR (African American) 62.9; Est GFR (Non-African American) 54.3; Magnesium 2.3 mg/dl (1.8-2.4); Potassium 4.2 mmol/L (3.5-5.1)
[2020-05-16] MEDS: APIXABAN 5 MG TABLET PO SCH ×2 (08:00→22:48)
[2020-05-16] MEDS: ASPIRIN 81 MG ECTAB PO SCH (08:00)
[2020-05-16] MEDS: FOLIC ACID 1 MG TAB PO SCH (08:00)
[2020-05-16] MEDS: DOCUSATE SODIUM 100 MG CAP PO SCH ×2 (08:01→22:45)
[2020-05-16] MEDS: ZINC SULFATE 220 MG CAPSULE PO SCH (08:01)
[2020-05-16] MEDS: ASCORBIC ACID 500 MG TAB PO SCH ×2 (08:01→22:47)
[2020-05-16] MEDS: FAMOTIDINE 20 MG TAB PO SCH ×2 (08:01→22:48)
[2020-05-16] MEDS: INSULIN ASPART 100 UNITS/ML 3 ML PEN SC SCH ×4 (08:21→23:01)
[2020-05-16] MEDS: INSULIN HUMAN NPH SC SCH (08:38)
--- NOTE | 2020-05-16 08:38 | Pharmacy Report ---
Pharmacy Glycemic Short Note 2 - Date of Service May 16, 2020 - Glycemic Short BSG Results (Last 24 hours): 05/15/20 05/15/20 05/15/20 11:10 17:27 21:28 Glucose POC Glucose 188 H 111 H 172 H 05/16/20 05/16/20 05:40 07:29 Glucose 130 H POC Glucose 148 H OUTPATIENT ANTIDIABETIC REGIMEN: * metformin * HbA1c: 5.4% (05/15/20) ASSESSMENT: 05/16/20: * Patient received 43 units of insulin yesterday (18 units of NPH and 25 units of prandial/correctional) * BSGs of 97, 188, 111, and 172 mg/dL * Dexamethasone changed from 6 mg IV to PO to start this morning * Will continue currently ordered NPH dose this morning and adjust as appropriate 05/15/20: * 79 year old admitted with COVID 19, started on remdesivir and DXM. Type 2 diabetic managed only on metformin at home per patient. State he is not on insulin. (however insulin listed on med rec - may need to evaluate further) * Received total of 34 units of insulin yesterday, of which 16 were basal to help cover steroids * Fasting BSG this AM 97 mg/dL - continues on steroid IV this morning / plan to start NPH this AM to help with coverage of steroid. Plan to start 18 units (~0.2 unit/kg) - slightly lower dosing d/t lantus still on board from last night * Unclear diabetic control at home, as A1c pending PLAN FOR INPATIENT GLYCEMIC CONTROL: * Hold outpatient oral diabetes medications * Basal insulin - continue * NPH 18 units daily (0.2 unit/kg) * Bolus insulin - continue * NovoLog per scale ACHS or Q6hrs while NPO * Goal Range: Low 110 mg/dL - High 140 mg/dL * Correction Factor: 15 mg/dL/unit * Nutritional / Prandial insulin per carb ratio of 1 unit per 6 grams CHO consumed PLAN FOR DISCHARGE: * Based on HbA1c of 5.4% - it is reasonable to continue outpatient metformin at discharge
--- NOTE | 2020-05-16 09:27 | Cardiology Progress Note ---
Date of Service May 16, 2020 Assessment & Plan (1) Digoxin toxicity: (2) First degree atrioventricular block: (3) Left bundle branch block: (4) COVID-19: (5) Paroxysmal atrial flutter: Patient doing well clinically and hemodynamically. No evidence of recurrent atrial flutter and his CO interval and QRS duration are both gradually improving as digoxin/propafenone wash out. On apixaban for anticoagulation for paroxysmal atrial flutter, need for this long-term can be reevaluated in the future depending upon maintenance of sinus rhythm (since his initial and only episode of atrial flutter may have been secondary to acute infection). No overt heart failure, could use PRN diuretic to maintain I's/O balance if necessary. Although he is doing quite well, he still has evidence of significant conduction abnormality on telemetry, therefore would continue to monitor for another 24 h ours. If his conduction abnormalities continue to improve and he remains clinically stable, could potentially discharge tomorrow (at least from a cardiac standpoint), possibly to home (he is reluctant to go back to [facility]). Daily ECG ordered tomorrow accurately monitor improvement in conduction abnormalities. Admission and Anticipated Discharge Date Admission Date: May 14, 2020 Subjective Spoke with patient via phone. He had a coughing spell while on the commode and had some transient chest discomfort with this, otherwise no chest pain. He feels well walking to the bathroom and back, no dyspnea on exertion. No subjective palpitations, lightheadedness, presyncope, or syncope. No focal neurologic symptoms. Physical Exam Physical Exam: Examination not performed, see hospitalist note for exam. Results & Data ([facility]) Vital Signs (Past 12 Hours) Vital Signs Temp Pulse Resp BP Pulse Ox 05/16/20 07:30 97.9 F 69 20 125/67 90 05/16/20 04:16 71 20 123/66 88 L Laboratory Results Hemoglobin 9.7 with normal white count and platelet count. Normal electrolytes, BUN 27, creatinine 1.26. Diagnostic Findings Monitor showed sinus rhythm with severe first-degree AV block (CO interval 0.3 seconds), rate in the 70s. PG Care Time/CCT Total # of Minutes Spent Total Time Spent with Patient: Total time spent is greater than 50% in coordination of care (as documented) at patient's floor/unit and/or counseling patient: Coding Level of Care Code 45588 Subseq Hosp Care Lvl 3 Diagnoses Digoxin toxicity T46.0X1A First degree atrioventricular block I44.0 Left bundle branch block I44.7 COVID-19 U07.1 Paroxysmal atrial flutter I48.92
[2020-05-16] MEDS: dexAMETHasone 1 MG TAB PO SCH (10:12)
[2020-05-16] MEDS: GABAPENTIN 300 MG CAP PO SCH ×3 (10:12→22:48)
--- NOTE | 2020-05-16 16:48 | Hospitalist Progress Note ---
Date of Service May 16, 2020 Assessment & Plan (1) Digoxin toxicity: Presented with hypoxia, fever, found to have Covid-19. Also found to have new onset LBBB and severe first-degree AV block, digoxin level 2.5 on admission Digibind was not given. Appreciate cardiology consultation Continue to hold digoxin-level is now down to 1.4 Continue to hold propafenone May have been due to renal insufficiency Follow daily ECG Follow on telemetry (2) First degree atrioventricular block: As above (3) COVID-19: Unclear onset of symptoms but tested negative at [facility]. Sudden decline on the day of admission and tested positive here on 05/14 Has moderate-severe disease with pulse ox still as low as 87% on 2 L at times Chest x-ray with trace pleural effusions with bibasilar densities suggestive of atelectasis versus pneumonitis Continue dexamethasone 6 mg IV daily x10-day course-last dose will be 05/23 Remdesivir IV 5 day course-last dose will be on 05/18 Convalescent plasma transfused on 05/14 Remains on small amount of oxygen and has a cough, otherwise doing okay -Continue Pepcid while on steroids (4) Hypoxia: Secondary to Covid-19 Aim O2 sats > 90%. - Presently needing only about 2 L NC to maintain sats. (5) Left bundle branch block: New onset since April 28. Thought to be secondary to digoxin toxicity and the use of propafenone No acute chest pain Serially trended troponin and was negative x4. Echocardiogram with preserved LVEF 55-60%, septal motion consistent with conduction abnormality, no regional wall motion abnormalities noted, mild LVH, mild MR and TR, RVSP elevated at 30-40 mmHg Continue to hold digoxin and propafenone Appreciate cardiology consultation Follow ECG in the morning Continue monitoring on telemetry (6) Pulmonary edema: Treated as possible CHF in setting of new LBBB Low Na, heart healthy diet, fluid restrict 1200ml IV lasix 20mg IV was given Strict I&Os-he is net -370 mL Daily weight is down 4.3 kg since admission Remains on O2 as above secondary to Covid pneumonia (7) Elevated serum creatinine: Unclear baseline to know whether this is KYLEE. Hypervolemic on admission. Creatinine down from 1.5-1.3 Follow BMP (8) Atrial flutter: Paroxysmal. New diagnosis at [facility] admission several weeks ago. -Continue anticoagulation with Eliquis 5mg BID - Monitor on telemetry for recurrence now that he's off digoxin and propafenone. If he does go back into atrial flutter, may need ablation vs. pacemaker. (9) Pericardial effusion: Noted in [facility], but none noted here on echocardiogram. - Monitor (10) Lactic acidemia: Suspect due to COVID-19, hypoxia. Resolved 2.1 -> 1.2 (11) HTN (hypertension): BP acceptable -Continue to hold amlodipine for now given stability of BP. (12) Normocytic anemia: Unclear baseline. Hemoglobin here is low at 9.7 B12 is normal -Check iron studies and folate with AM labs Of note, he is on methotrexate which could cause anemia (13) Type 2 diabetes mellitus: HbA1C low at 5.4% -Continue to hold home metformin - Consulted pharmacy for glycemic control with basal bolus insulin in setting of steroid use. -> Using NPH and NovoLog (14) Glaucoma: - Lumigan eye drops QPM (15) Rheumatoid arthritis: Continue methotrexate once weekly with folic acid supplementation. (16) DVT prophylaxis: Eliquis Disposition-continued stay Admission and Anticipated Discharge Date Admission Date: May 14, 2020 Subjective Patient reports he feels well today. He has some pain in his chest with coughing. Denies headache or lightheadedness. No nausea or vomiting, no abdominal pain or diarrhea. He has not moved his bowels in 2 days but feels like he might later. His appetite is improved. He does not feel short of breath but remains on oxygen. Telemetry with sinus rhythm, first-degree AV block, IVCD, rates in the 70s Review of Systems Review of Systems: All systems reviewed & are unremarkable except as noted in HPI & below Physical Exam Constitutional: WD/WN, vitals as above Eyes: + anicteric sclerae ENMT: external ear and nose normal, oropharynx normal Neck: trachea midline, no thyromegaly Respiratory: normal respiratory effort, lungs clear to auscultation Cardiovascular: RRR, no murmur, no edema Chest (Breasts): Chest: normal inspection of chest Gastrointestinal (Abdomen): normal bowel sounds, soft, nontender, no hepatosplenomegaly Musculoskeletal: Extremities: extremities normal to inspection; no cyanosis and no clubbing Skin: no rashes, warm and dry Neurologic: moves all extremities and awake; no focal motor deficits Psychiatric: A+Ox3, euthymic affect Lymphatic: no lymphedema Results & Data Results & Data ([facility]) Vital Signs (Past 12 Hours) Vital Signs Temp Pulse Pulse Resp BP Pulse Ox 05/16/20 15:22 36.8 C 70 18 124/60 96 05/16/20 11:12 36.7 C 71 18 122/67 88 L 05/16/20 10:25 74 05/16/20 07:30 36.6 C 69 20 125/67 90 Laboratory Results 05/16/20 05/16/20 05/16/20 Range/Units 16:26 11:10 07:29 WBC (4.8-10.8) K/uL RBC (4.7-6.1) M/uL Hgb (14.0-18.0) g/dL Hct (42-52) % MCV (80-100) fL MCH (25-34) pg MCHC (32-36) g/dL RDW Std Deviation (36.4-46.3) fL RDW Coeff of Fannie (11.5-14.5) % Plt Count (130-400) K/uL MPV (7.4-10.4) fL Sodium (136-145) mmol/L Potassium (3.5-5.1) mmol/L Chloride (98-107) mmol/L Carbon Dioxide (21-32) mmol/L Anion Gap (3-11) BUN (7-18) mg/dl Creatinine (0.6-1.4) mg/dl Est Cr Clr Drug Dosing ml/min Est GFR ( Amer) Est GFR (Non-Af Amer) BUN/Creatinine Ratio (10-20) Glucose (70-99) mg/dl POC Glucose 156 H 194 H 148 H (70-99) mg/dl Estimat Average Glucose mg/dl Hemoglobin A1c (4.5-5.6) % Calcium (8.5-10.1) mg/dl Magnesium (1.8-2.4) mg/dl Digoxin (0.8-2.0) ng/ml 05/16/20 05/16/20 05/16/20 Range/Units 05:40 05:40 05:40 WBC 8.50 (4.8-10.8) K/uL RBC 3.16 L (4.7-6.1) M/uL Hgb 9.7 L (14.0-18.0) g/dL Hct 30.3 L (42-52) % MCV 95.9 (80-100) fL MCH 30.7 (25-34) pg MCHC 32.0 (32-36) g/dL RDW Std Deviation 69.8 H (36.4-46.3) fL RDW Coeff of Fannie 20.4 H (11.5-14.5) % Plt Count 282 (130-400) K/uL MPV 10.2 (7.4-10.4) fL Sodium 138 (136-145) mmol/L Potassium 4.2 (3.5-5.1) mmol/L Chloride 105 (98-107) mmol/L Carbon Dioxide 30 (21-32) mmol/L Anion Gap 3.0 (3-11) BUN 27 H (7-18) mg/dl Creatinine 1.26 (0.6-1.4) mg/dl Est Cr Clr Drug Dosing 54.6 ml/min Est GFR ( Amer) 62.9 Est GFR (Non-Af Amer) 54.3 BUN/Creatinine Ratio 21.5 H (10-20) Glucose 130 H (70-99) mg/dl POC Glucose (70-99) mg/dl Estimat Average Glucose mg/dl Hemoglobin A1c (4.5-5.6) % Calcium 8.5 (8.5-10.1) mg/dl Magnesium 2.3 (1.8-2.4) mg/dl Digoxin 1.4 (0.8-2.0) ng/ml 05/15/20 05/15/20 Range/Units 21:28 07:00 WBC (4.8-10.8) K/uL RBC (4.7-6.1) M/uL Hgb (14.0-18.0) g/dL Hct (42-52) % MCV (80-100) fL MCH (25-34) pg MCHC (32-36) g/dL RDW Std Deviation (36.4-46.3) fL RDW Coeff of Fannie (11.5-14.5) % Plt Count (130-400) K/uL MPV (7.4-10.4) fL Sodium (136-145) mmol/L Potassium (3.5-5.1) mmol/L Chloride (98-107) mmol/L Carbon Dioxide (21-32) mmol/L Anion Gap (3-11) BUN (7-18) mg/dl Creatinine (0.6-1.4) mg/dl Est Cr Clr Drug Dosing ml/min Est GFR ( Amer) Est GFR (Non-Af Amer) BUN/Creatinine Ratio (10-20) Glucose (70-99) mg/dl POC Glucose 172 H (70-99) mg/dl Estimat Average Glucose 108 mg/dl Hemoglobin A1c 5.4 (4.5-5.6) % Calcium (8.5-10.1) mg/dl Magnesium (1.8-2.4) mg/dl Digoxin (0.8-2.0) ng/ml PG Care Time/CCT Total # of Minutes Spent Total Time Spent with Patient: Total time spent is greater than 50% in coordination of care (as documented) at patient's floor/unit and/or counseling patient: Coding Level of Care Code 37883 Subseq Hosp Care Lvl 3 Diagnoses Digoxin toxicity T46.0X1A First degree atrioventricular block I44.0 COVID-19 U07.1 Hypoxia R09.02 Left bundle branch block I44.7 Pulmonary edema J81.1 Elevated serum creatinine R79.89 Atrial flutter I48.92 Pericardial effusion I31.3 Lactic acidemia E87.2 HTN (hypertension) I10 Normocytic anemia D64.9 Type 2 diabetes mellitus E11.9 Glaucoma H40.9 Rheumatoid arthritis M06.9 DVT prophylaxis Z29.9
[2020-05-16] MEDS ORDERED: ACETAMINOPHEN 500 MG TAB PO PRN (19:53)
[2020-05-16] MEDS: REMDESIVIR 100 MG in SODIUM CHLORIDE 0.9% 230 ML IV SCH (22:42)
[2020-05-16] MEDS: MELATONIN 3 MG TAB PO SCH (22:48)
[2020-05-17] MEDS: SODIUM CHLORIDE 0.9% 10ML FLUSH IV SCH ×2 (00:32→23:39)
[2020-05-17 06:20] LABS: Hemoglobin 9.9 g/dL (14.0-18.0); Immature Granulocytes # (auto) 0.02 K/uL (0.00-0.02); Immature Granulocytes % (auto) 0.3 %; Lymphocytes # (auto) 1.18 K/uL (1.2-3.4); Lymphocytes % (auto) 15.4 %; Mean Corpuscular Hemoglobin 30.7 pg (25-34); Mean Corpuscular Hgb Conc 31.9 g/dL (32-36); Mean Corpuscular Volume 96.3 fL (80-100); Mean Platelet Volume 9.6 fL (7.4-10.4); Monocytes # (auto) 0.73 K/uL (0.11-0.59); Monocytes % (auto) 9.5 %; Neutrophils # (auto) 5.73 K/uL (1.4-6.5); Neutrophils % (auto) 74.8 %; Platelet Count 289 K/uL (130-400); RDW Coefficient of Variation 20.4 % (11.5-14.5); RDW Standard Deviation 69.4 fL (36.4-46.3); Red Blood Count 3.22 M/uL (4.7-6.1); White Blood Count 7.66 K/uL (4.8-10.8)
[2020-05-17 06:35] LABS: D Dimer 2160 ug/L FEU (0-500)
[2020-05-17 06:37] LABS: Anisocytosis Present; Rouleaux 1+
[2020-05-17 06:53] LABS: Albumin Level 2.5 gm/dl (3.4-5.0); BUN Creatinine Ratio 22.2 (10-20); C Reactive Protein 4.17 mg/dl (0-0.29); Calcium 8.2 mg/dl (8.5-10.1); Creatinine Clr Calc Pharmacy 54.6 ml/min; Est GFR (African American) 62.9; Est GFR (Non-African American) 54.3; Magnesium 2.1 mg/dl (1.8-2.4); Phosphorus 3.5 mg/dl (2.5-4.9); Potassium 4.3 mmol/L (3.5-5.1)
[2020-05-17 06:57] LABS: Albumin Globulin Ratio 0.6 (0.9-2); Bilirubin,Total 0.7 mg/dl (0.2-1); Ferritin 493.9 ng/ml (8-388); Globulin 4.3 gm/dl (2.5-4.0); Total Protein 6.8 gm/dl (6.4-8.2)
[2020-05-17] MEDS: INSULIN ASPART 100 UNITS/ML 3 ML PEN SC SCH ×4 (09:42→21:47)
[2020-05-17] MEDS: FAMOTIDINE 20 MG TAB PO SCH ×2 (09:43→21:17)
[2020-05-17] MEDS: GABAPENTIN 300 MG CAP PO SCH ×3 (09:43→21:16)
[2020-05-17] MEDS: ASCORBIC ACID 500 MG TAB PO SCH ×2 (09:43→21:17)
[2020-05-17] MEDS: DOCUSATE SODIUM 100 MG CAP PO SCH ×2 (09:44→21:16)
[2020-05-17] MEDS: FOLIC ACID 1 MG TAB PO SCH (09:44)
[2020-05-17] MEDS: dexAMETHasone 1 MG TAB PO SCH (09:44)
[2020-05-17] MEDS: ASPIRIN 81 MG ECTAB PO SCH (09:44)
[2020-05-17] MEDS: INSULIN HUMAN NPH SC SCH (09:46)
[2020-05-17] MEDS: ZINC SULFATE 220 MG CAPSULE PO SCH (09:48)
[2020-05-17] MEDS: APIXABAN 5 MG TABLET PO SCH ×2 (11:26→21:16)
--- NOTE | 2020-05-17 12:57 | Cardiology Progress Note ---
Date of Service May 17, 2020 Assessment & Plan (1) Digoxin toxicity: (2) First degree atrioventricular block: (3) Left bundle branch block: (4) COVID-19: (5) Paroxysmal atrial flutter: Patient is doing well from a cardiac standpoint, ECG has essentially returned to normal (minor first-degree AV block persists, but this is much improved). Suspect that his initial episode of atrial flutter was secondary to cardiac involvement from his Covid infection, given that he had a pericardial effusion (since resolved). As such, he may or may not have any recurrent atrial flutter, this may have been a one-time event. In order to reduce the likelihood of recurrent atrial flutter or to mitigate if he does have a recurrence, recommend a low dose of beta-keyshawn upon discharge (metoprolol succinate 12.5 mg daily). Although he has some conduction disease, this low dose would be unlikely to markedly exacerbate his minor first-degree AV block, but hopefully would reduce tendency to atrial dysrhythmia. Would continue apixaban 5 mg twice daily for now and upon discharge, at the time of cardiology follow-up in 1 month will reevaluate the risk/benefits of long- term anticoagulation given that this may have been a one-time dysrhythmic event. His cardiac issues at this point have resolved, will sign off, please contact if any recurrent or new cardiology issues. Thank you. Admission and Anticipated Discharge Date Admission Date: May 14, 2020 Subjective Spoke with patient via phone. He feels well in general, denying chest pain or dyspnea at rest. He is anxious to return home, noting that he has not seen his in 30 days. He can walk to the bathroom and back, no dyspnea on exertion. No subjective palpitations, lightheadedness, presyncope, or syncope. No focal neurologic symptoms. Physical Exam Physical Exam: Examination not performed, see hospitalist note for exam. Results & Data ([facility]) Vital Signs (Past 12 Hours) Vital Signs Temp Pulse Pulse Resp BP Pulse Ox 05/17/20 11:45 64 05/17/20 11:10 97.9 F 72 18 122/73 98 05/17/20 07:57 97.9 F 65 18 132/73 93 05/17/20 03:48 98.1 F 67 18 123/60 95 Diagnostic Findings ECG today showed sinus rhythm at 64 bpm, first-degree AV block (OH interval 0.28 seconds), and poor R wave progression. Compared with 05/15/2020 study, OH interval has decreased, QRS interval has decreased and left bundle branch block is no longer present. PG Care Time/CCT Total # of Minutes Spent Total Time Spent with Patient: Total time spent is greater than 50% in coordination of care (as documented) at patient's floor/unit and/or counseling patient: Coding Level of Care Code 83050 Subseq Hosp Care Lvl 3 Diagnoses Digoxin toxicity T46.0X1A First degree atrioventricular block I44.0 Left bundle branch block I44.7 COVID-19 U07.1 Paroxysmal atrial flutter I48.92
--- NOTE | 2020-05-17 15:32 | Electrocardiogram Report ---
Test Reason : Blood Pressure : / mmHG Vent. Rate : 064 BPM Atrial Rate : 064 BPM P-R Int : 296 ms QRS Dur : 102 ms QT Int : 410 ms P-R-T Axes : 001 -19 -30 degrees QTc Int : 422 ms Sinus rhythm with 1st degree A-V block with Premature atrial complexes Nonspecific ST abnormality Abnormal ECG When compared with ECG of 15-MAY-2020 11:06, Premature atrial complexes are now Present HI interval has decreased Left bundle branch block is no longer Present Confirmed by Julien Dodd ([id number] on 05/17/2020 3:32:21 PM Referred By: [facility] Confirmed By:Daniel Dodd
[2020-05-17] MEDS ORDERED: SALINE NASAL 225 SPRAYS, GENTAMICIN SULFATE 60 MG, BARCODE IDENTIFIER 0 EA PRN (16:42)
[2020-05-17] MEDS ORDERED: SODIUM CHLORIDE 0.65% NA SOLN 45 ML (OCEAN) ONE (16:46)
[2020-05-17] MEDS ORDERED: SODIUM CHLORIDE 0.65% NA SOLN 45 ML (OCEAN) PRN (16:52)
--- NOTE | 2020-05-17 16:52 | Hospitalist Progress Note ---
Date of Service May 17, 2020 Assessment & Plan (1) Digoxin toxicity: Presented with hypoxia, fever, found to have Covid-19. Also found to have new onset LBBB and severe first-degree AV block, digoxin level 2.5 on admission Digibind was not given. Appreciate cardiology consultation Now improved-LBBB is now resolved, first-degree AV block is significantly reduced from previous. Discontinued digoxin-level is now down to 1.4 Discontinued propafenone May have been due to renal insufficiency Continue to follow on telemetry Cardiology has now signed off-patient should follow-up with cardiology in 1 month after discharge (2) First degree atrioventricular block: As above, now improved (3) COVID-19: Unclear onset of symptoms but tested negative at [facility]. Sudden decline on the day of admission and tested positive here on 05/14 after having fever and hypoxia Has moderate-severe disease with pulse ox less than 94% Oxygen requirement has gone up significantly today anywhere from 6 L NC to 14 L facemask Markers of inflammation and D-dimer are significantly elevated, but CRP has decreased from previous. Chest x-ray on admission with trace pleural effusions with bibasilar densities suggestive of atelectasis versus pneumonitis Continue dexamethasone 6 mg IV daily x10-day course-last dose will be 05/23 Remdesivir IV 5 day course-last dose will be on 05/18 Convalescent plasma transfused on 05/14 -Continue Pepcid while on steroids -Follow CBC, CMP, D-dimer, ferritin, LDH, ESR, CRP -Continue supplemental O2 -hold home MTX while with COVID (4) Hypoxia: Secondary to Covid-19, worsening today Aim O2 sats > 90%. -Requiring higher amounts of oxygen today as above Continue supplemental O2 to keep pulse ox greater than 92% and wean down as able to Will likely need oxygen at home upon discharge (5) Left bundle branch block: New onset since April 28. Thought to be secondary to digoxin toxicity and the use of propafenone-has now resolved as noted above with discontinuation of digoxin No acute chest pain Serially trended troponin and was negative x4. Echocardiogram with preserved LVEF 55-60%, septal motion consistent with conduction abnormality, no regional wall motion abnormalities noted, mild LVH, mild MR and TR, RVSP elevated at 30-40 mmHg Permanently discontinue digoxin and propafenone Appreciate cardiology consultation (6) Pulmonary edema: Treated as possible CHF in setting of new LBBB Low Na, heart healthy diet, fluid restrict 1800ml IV lasix 20mg IV was given x1 upon admission and will now give another dose today for worsening hypoxia Strict I&Os Daily weight is down 4.3 kg since admission Remains on O2 as above secondary to Covid pneumonia and possibly CHF -Follow chest x-ray in the morning (7) Elevated serum creatinine: Unclear baseline to know whether this is KYLEE. Hypervolemic on admission. Creatinine down from 1.5--> 1.26 Follow BMP (8) Atrial flutter: Paroxysmal. New diagnosis at [facility] admission several weeks ago. He has had no recurrence of atrial flutter during this admission Cardiology feels that that may have been lone atrial flutter in the setting of acute illness and pericardial effusion which is now resolved For now, but cardiology recommends reevaluating risk versus benefit of continuing long-term anticoagulation 1 month from now -Continue anticoagulation with Eliquis 5mg BID - Monitor on telemetry for recurrence now that he's off digoxin and propafenone. Cardiology also recommend starting Toprol-XL 12.5 mg once daily just in case he does have return of atrial flutter-will wait until tomorrow to start this (9) Pericardial effusion: Noted in [facility], but none noted here on echocardiogram. - Monitor (10) Lactic acidemia: Suspect due to COVID-19, hypoxia. Resolved 2.1 -> 1.2 (11) HTN (hypertension): BP acceptable -Continue to hold amlodipine for now given stability of BP. (12) Normocytic anemia: Unclear baseline. Hemoglobin here is low at 9.9 and stable from previous B12 and folate are normal, iron studies also normal transferrin saturation 29% Of note, he is on methotrexate which could cause anemia (13) Type 2 diabetes mellitus: HbA1C low at 5.4% -Continue to hold home metformin - Consulted pharmacy for glycemic control with basal bolus insulin in setting of steroid use. -> Using NPH and NovoLog (14) Glaucoma: - Lumigan eye drops QPM (15) Rheumatoid arthritis: Hold methotrexate while has Covid (16) DVT prophylaxis: Eliquis Disposition-continued stay, but very anxious for discharge. Discussed his care with his and she will help to convince him that he needs to stay until his oxygen requirement is improved. Admission and Anticipated Discharge Date Admission Date: May 14, 2020 Subjective Patient very anxious to be discharged today however he was requiring 14 L via oxygen mask earlier today and is now weaned down to 6 L nasal cannula. He denies nasal congestion but the nurse reports that he is more of a mouth breather. He denies any shortness of breath or cough, no chest pain. No lightheadedness. He is ambulating to the bathroom and back. He is eating and drinking and denies nausea or vomiting, no diarrhea. Telemetry with sinus rhythm with first-degree AV block, rates in the 60s to 70s. ECG today now with sinus rhythm with first-degree AV block with significantly reduced VT interval down to 296, and no further left bundle branch block Review of Systems Review of Systems: All systems reviewed & are unremarkable except as noted in HPI & below Physical Exam Constitutional: WD/WN, vitals as above Eyes: + anicteric sclerae Neck: trachea midline, no thyromegaly Respiratory: normal respiratory effort, lungs clear to auscultation Cardiovascular: RRR, no murmur, no edema Chest (Breasts): Chest: normal inspection of chest Gastrointestinal (Abdomen): normal bowel sounds, soft, nontender, no hepatosplenomegaly Musculoskeletal: Extremities: extremities normal to inspection; no cyanosis and no clubbing Skin: no rashes, warm and dry Neurologic: moves all extremities and awake; no focal motor deficits Psychiatric: A+Ox3, euthymic affect Lymphatic: no lymphedema Results & Data Results & Data ([facility]) Vital Signs (Past 12 Hours) Vital Signs Temp Pulse Pulse Resp BP Pulse Ox Pulse Ox 05/17/20 15:00 36.6 C 78 61 18 126/72 97 05/17/20 14:21 86 L 05/17/20 11:45 64 05/17/20 11:10 36.6 C 72 18 122/73 98 05/17/20 07:57 36.6 C 65 18 132/73 93 Laboratory Results 05/17/20 05/17/20 05/17/20 Range/Units 16:50 11:28 08:29 WBC (4.8-10.8) K/uL RBC (4.7-6.1) M/uL Hgb (14.0-18.0) g/dL Hct (42-52) % MCV (80-100) fL MCH (25-34) pg MCHC (32-36) g/dL RDW Std Deviation (36.4-46.3) fL RDW Coeff of Fannie (11.5-14.5) % Plt Count (130-400) K/uL MPV (7.4-10.4) fL Immature Gran % (Auto) % Neut % (Auto) % Lymph % (Auto) % Whitley % (Auto) % Eos % (Auto) % Baso % (Auto) % Neut # (Auto) (1.4-6.5) K/uL Lymph # (Auto) (1.2-3.4) K/uL Whitley # (Auto) (0.11-0.59) K/uL Eos # (Auto) (0-0.5) K/uL Baso # (Auto) (0-0.2) K/uL Immature Gran # (Auto) (0.00-0.02) K/uL Anisocytosis Rouleaux ESR (0-14) mm/hr D-Dimer (0-500) ug/L FEU Sodium (136-145) mmol/L Potassium (3.5-5.1) mmol/L Chloride (98-107) mmol/L Carbon Dioxide (21-32) mmol/L Anion Gap (3-11) BUN (7-18) mg/dl Creatinine (0.6-1.4) mg/dl Est Cr Clr Drug Dosing ml/min Est GFR ( Amer) Est GFR (Non-Af Amer) BUN/Creatinine Ratio (10-20) Glucose (70-99) mg/dl POC Glucose 85 177 H 105 H (70-99) mg/dl Calcium (8.5-10.1) mg/dl Phosphorus (2.5-4.9) mg/dl Magnesium (1.8-2.4) mg/dl Iron (35-175) mcg/dl TIBC (250-450) mcg/dl Transferrin (200-360) mg/dl Transferrin % Sat (20-50) % Ferritin (8-388) ng/ml Total Bilirubin (0.2-1) mg/dl AST (15-37) U/L ALT (12-78) U/L Alkaline Phosphatase (45-117) U/L Lactate Dehydrogenase (87-241) U/L C-Reactive Protein (0-0.29) mg/dl Total Protein (6.4-8.2) gm/dl Albumin (3.4-5.0) gm/dl Globulin (2.5-4.0) gm/dl Albumin/Globulin Ratio (0.9-2) Folate (>5.38) ng/ml 05/17/20 05/17/20 05/17/20 Range/Units 06:03 06:03 06:03 WBC (4.8-10.8) K/uL RBC (4.7-6.1) M/uL Hgb (14.0-18.0) g/dL Hct (42-52) % MCV (80-100) fL MCH (25-34) pg MCHC (32-36) g/dL RDW Std Deviation (36.4-46.3) fL RDW Coeff of Fannie (11.5-14.5) % Plt Count (130-400) K/uL MPV (7.4-10.4) fL Immature Gran % (Auto) % Neut % (Auto) % Lymph % (Auto) % Whitley % (Auto) % Eos % (Auto) % Baso % (Auto) % Neut # (Auto) (1.4-6.5) K/uL Lymph # (Auto) (1.2-3.4) K/uL Whitley # (Auto) (0.11-0.59) K/uL Eos # (Auto) (0-0.5) K/uL Baso # (Auto) (0-0.2) K/uL Immature Gran # (Auto) (0.00-0.02) K/uL Anisocytosis Rouleaux ESR (0-14) mm/hr D-Dimer (0-500) ug/L FEU Sodium 141 (136-145) mmol/L Potassium 4.3 (3.5-5.1) mmol/L Chloride 108 H (98-107) mmol/L Carbon Dioxide 30 (21-32) mmol/L Anion Gap 3.0 (3-11) BUN 28 H (7-18) mg/dl Creatinine 1.26 (0.6-1.4) mg/dl Est Cr Clr Drug Dosing 54.6 ml/min Est GFR ( Amer) 62.9 Est GFR (Non-Af Amer) 54.3 BUN/Creatinine Ratio 22.2 H (10-20) Glucose 100 H (70-99) mg/dl POC Glucose (70-99) mg/dl Calcium 8.2 L (8.5-10.1) mg/dl Phosphorus 3.5 (2.5-4.9) mg/dl Magnesium 2.1 (1.8-2.4) mg/dl Iron 59 (35-175) mcg/dl TIBC 176 L (250-450) mcg/dl Transferrin 142 L (200-360) mg/dl Transferrin % Sat 29 (20-50) % Ferritin 493.9 H (8-388) ng/ml Total Bilirubin 0.7 (0.2-1) mg/dl AST 26 (15-37) U/L ALT 28 (12-78) U/L Alkaline Phosphatase 121 H (45-117) U/L Lactate Dehydrogenase 326 H (87-241) U/L C-Reactive Protein 4.17 H (0-0.29) mg/dl Total Protein 6.8 (6.4-8.2) gm/dl Albumin 2.5 L (3.4-5.0) gm/dl Globulin 4.3 H (2.5-4.0) gm/dl Albumin/Globulin Ratio 0.6 L (0.9-2) Folate > 20.00 (>5.38) ng/ml 05/17/20 05/17/20 05/17/20 Range/Units 06:03 06:03 06:03 WBC 7.66 (4.8-10.8) K/uL RBC 3.22 L (4.7-6.1) M/uL Hgb 9.9 L (14.0-18.0) g/dL Hct 31.0 L (42-52) % MCV 96.3 (80-100) fL MCH 30.7 (25-34) pg MCHC 31.9 L (32-36) g/dL RDW Std Deviation 69.4 H (36.4-46.3) fL RDW Coeff of Fannie 20.4 H (11.5-14.5) % Plt Count 289 (130-400) K/uL MPV 9.6 (7.4-10.4) fL Immature Gran % (Auto) 0.3 % Neut % (Auto) 74.8 % Lymph % (Auto) 15.4 % Whitley % (Auto) 9.5 % Eos % (Auto) 0.0 % Baso % (Auto) 0.0 % Neut # (Auto) 5.73 (1.4-6.5) K/uL Lymph # (Auto) 1.18 L (1.2-3.4) K/uL Whitley # (Auto) 0.73 H (0.11-0.59) K/uL Eos # (Auto) 0.00 (0-0.5) K/uL Baso # (Auto) 0.00 (0-0.2) K/uL Immature Gran # (Auto) 0.02 (0.00-0.02) K/uL Anisocytosis Present Rouleaux 1+ ESR 69 H (0-14) mm/hr D-Dimer 2160 H* (0-500) ug/L FEU Sodium (136-145) mmol/L Potassium (3.5-5.1) mmol/L Chloride (98-107) mmol/L Carbon Dioxide (21-32) mmol/L Anion Gap (3-11) BUN (7-18) mg/dl Creatinine (0.6-1.4) mg/dl Est Cr Clr Drug Dosing ml/min Est GFR ( Amer) Est GFR (Non-Af Amer) BUN/Creatinine Ratio (10-20) Glucose (70-99) mg/dl POC Glucose (70-99) mg/dl Calcium (8.5-10.1) mg/dl Phosphorus (2.5-4.9) mg/dl Magnesium (1.8-2.4) mg/dl Iron (35-175) mcg/dl TIBC (250-450) mcg/dl Transferrin (200-360) mg/dl Transferrin % Sat (20-50) % Ferritin (8-388) ng/ml Total Bilirubin (0.2-1) mg/dl AST (15-37) U/L ALT (12-78) U/L Alkaline Phosphatase (45-117) U/L Lactate Dehydrogenase (87-241) U/L C-Reactive Protein (0-0.29) mg/dl Total Protein (6.4-8.2) gm/dl Albumin (3.4-5.0) gm/dl Globulin (2.5-4.0) gm/dl Albumin/Globulin Ratio (0.9-2) Folate (>5.38) ng/ml 05/16/20 Range/Units 20:27 WBC (4.8-10.8) K/uL RBC (4.7-6.1) M/uL Hgb (14.0-18.0) g/dL Hct (42-52) % MCV (80-100) fL MCH (25-34) pg MCHC (32-36) g/dL RDW Std Deviation (36.4-46.3) fL RDW Coeff of Fannie (11.5-14.5) % Plt Count (130-400) K/uL MPV (7.4-10.4) fL Immature Gran % (Auto) % Neut % (Auto) % Lymph % (Auto) % Whitley % (Auto) % Eos % (Auto) % Baso % (Auto) % Neut # (Auto) (1.4-6.5) K/uL Lymph # (Auto) (1.2-3.4) K/uL Whitley # (Auto) (0.11-0.59) K/uL Eos # (Auto) (0-0.5) K/uL Baso # (Auto) (0-0.2) K/uL Immature Gran # (Auto) (0.00-0.02) K/uL Anisocytosis Rouleaux ESR (0-14) mm/hr D-Dimer (0-500) ug/L FEU Sodium (136-145) mmol/L Potassium (3.5-5.1) mmol/L Chloride (98-107) mmol/L Carbon Dioxide (21-32) mmol/L Anion Gap (3-11) BUN (7-18) mg/dl Creatinine (0.6-1.4) mg/dl Est Cr Clr Drug Dosing ml/min Est GFR ( Amer) Est GFR (Non-Af Amer) BUN/Creatinine Ratio (10-20) Glucose (70-99) mg/dl POC Glucose 160 H (70-99) mg/dl Calcium (8.5-10.1) mg/dl Phosphorus (2.5-4.9) mg/dl Magnesium (1.8-2.4) mg/dl Iron (35-175) mcg/dl TIBC (250-450) mcg/dl Transferrin (200-360) mg/dl Transferrin % Sat (20-50) % Ferritin (8-388) ng/ml Total Bilirubin (0.2-1) mg/dl AST (15-37) U/L ALT (12-78) U/L Alkaline Phosphatase (45-117) U/L Lactate Dehydrogenase (87-241) U/L C-Reactive Protein (0-0.29) mg/dl Total Protein (6.4-8.2) gm/dl Albumin (3.4-5.0) gm/dl Globulin (2.5-4.0) gm/dl Albumin/Globulin Ratio (0.9-2) Folate (>5.38) ng/ml PG Care Time/CCT Total # of Minutes Spent Total Time Spent with Patient: Total time spent is greater than 50% in coordination of care (as documented) at patient's floor/unit and/or counseling patient: Coding Level of Care Code 67190 Subseq Hosp Care Lvl 3 Diagnoses Digoxin toxicity T46.0X1A First degree atrioventricular block I44.0 COVID-19 U07.1 Hypoxia R09.02 Left bundle branch block I44.7 Pulmonary edema J81.1 Elevated serum creatinine R79.89 Atrial flutter I48.92 Pericardial effusion I31.3 Lactic acidemia E87.2 HTN (hypertension) I10 Normocytic anemia D64.9 Type 2 diabetes mellitus E11.9 Glaucoma H40.9 Rheumatoid arthritis M06.9 DVT prophylaxis Z29.9
[2020-05-17] MEDS ORDERED: FUROSEMIDE 20 MG in SYRINGE 0 ML IV ONE (19:00)
[2020-05-17] MEDS: MELATONIN 3 MG TAB PO SCH (21:16)
[2020-05-17] MEDS: REMDESIVIR 100 MG in SODIUM CHLORIDE 0.9% 230 ML IV SCH (21:54)
[2020-05-18 07:15] LABS: Basophils # (auto) 0.01 K/uL (0-0.2); Basophils % (auto) 0.1 %; Eosinophils # (auto) 0.05 K/uL (0-0.5); Eosinophils % (auto) 0.7 %; Hematocrit (blood only) 33.6 % (42-52); Hemoglobin 10.7 g/dL (14.0-18.0); Immature Granulocytes # (auto) 0.02 K/uL (0.00-0.02); Immature Granulocytes % (auto) 0.3 %; Lymphocytes # (auto) 1.66 K/uL (1.2-3.4); Lymphocytes % (auto) 21.9 %; Mean Corpuscular Hemoglobin 30.6 pg (25-34); Mean Corpuscular Hgb Conc 31.8 g/dL (32-36); Mean Platelet Volume 9.6 fL (7.4-10.4); Monocytes # (auto) 0.77 K/uL (0.11-0.59); Monocytes % (auto) 10.2 %; Neutrophils # (auto) 5.07 K/uL (1.4-6.5); Neutrophils % (auto) 66.8 %; Platelet Count 299 K/uL (130-400); RDW Coefficient of Variation 20.7 % (11.5-14.5); RDW Standard Deviation 70.1 fL (36.4-46.3); White Blood Count 7.58 K/uL (4.8-10.8)
[2020-05-18 07:46] LABS: Albumin Level 2.6 gm/dl (3.4-5.0); Anisocytosis Present; C Reactive Protein 3.08 mg/dl (0-0.29); Calcium 9.1 mg/dl (8.5-10.1); Creatinine Clr Calc Pharmacy 53.3 ml/min; D Dimer 2040 ug/L FEU (0-500); Est GFR (African American) 61.1; Est GFR (Non-African American) 52.8; Magnesium 2.1 mg/dl (1.8-2.4); Potassium 4.5 mmol/L (3.5-5.1)
[2020-05-18 07:50] LABS: Albumin Globulin Ratio 0.6 (0.9-2); Bilirubin,Total 0.7 mg/dl (0.2-1); Ferritin 443.2 ng/ml (8-388); Globulin 4.5 gm/dl (2.5-4.0); Total Protein 7.1 gm/dl (6.4-8.2)
--- NOTE | 2020-05-18 08:28 | Pharmacy Report ---
Pharmacy Glycemic Short Note 2 - Date of Service May 18, 2020 - Glycemic Short BSG Results (Last 24 hours): 05/17/20 05/17/20 05/17/20 08:29 11:28 16:50 Glucose POC Glucose 105 H 177 H 85 05/17/20 05/18/20 05/18/20 21:26 06:25 07:24 Glucose 87 POC Glucose 176 H 94 OUTPATIENT ANTIDIABETIC REGIMEN: * metformin * HbA1c: 5.4% (05/15/20) ASSESSMENT: 05/18/20: * BSGs yesterday were reasonably well-controlled at 105, 177, 85, and 176 mg/dL * Patient received 28 units of insulin (16 units of NPH and 12 units of prandial/correctional) * Fasting BSG this morning of 94 mg/dL * Continues on dexamethasone 6 mg PO daily - will continue NPH 16 units SC daily w/ dexamethasone 05/16/20: * Patient received 43 units of insulin yesterday (18 units of NPH and 25 units of prandial/correctional) * BSGs of 97, 188, 111, and 172 mg/dL * Dexamethasone changed from 6 mg IV to PO to start this morning * Will continue currently ordered NPH dose this morning and adjust as appropriate 05/15/20: * 79 year old admitted with COVID 19, started on remdesivir and DXM. Type 2 diabetic managed only on metformin at home per patient. State he is not on insulin. (however insulin listed on med rec - may need to evaluate further) * Received total of 34 units of insulin yesterday, of which 16 were basal to help cover steroids * Fasting BSG this AM 97 mg/dL - continues on steroid IV this morning / plan to start NPH this AM to help with coverage of steroid. Plan to start 18 units (~0.2 unit/kg) - slightly lower dosing d/t lantus still on board from last night * Unclear diabetic control at home, as A1c pending PLAN FOR INPATIENT GLYCEMIC CONTROL: * Hold outpatient oral diabetes medications * Basal insulin - continue * NPH 16 units SC daily * Bolus insulin - continue * NovoLog per scale ACHS or Q6hrs while NPO * Goal Range: Low 110 mg/dL - High 140 mg/dL * Correction Factor: 15 mg/dL/unit * Nutritional / Prandial insulin per carb ratio of 1 unit per 6 grams CHO consumed PLAN FOR DISCHARGE: * Based on HbA1c of 5.4% - it is reasonable to continue outpatient metformin at discharge
[2020-05-18] MEDS: APIXABAN 5 MG TABLET PO SCH (09:03)
[2020-05-18] MEDS: ASCORBIC ACID 500 MG TAB PO SCH (09:03)
[2020-05-18] MEDS: ZINC SULFATE 220 MG CAPSULE PO SCH (09:03)
[2020-05-18] MEDS: FAMOTIDINE 20 MG TAB PO SCH (09:03)
[2020-05-18] MEDS: dexAMETHasone 1 MG TAB PO SCH (09:04)
[2020-05-18] MEDS: DOCUSATE SODIUM 100 MG CAP PO SCH (09:04)
[2020-05-18] MEDS: GABAPENTIN 300 MG CAP PO SCH ×2 (09:04→13:20)
[2020-05-18] MEDS: FOLIC ACID 1 MG TAB PO SCH (09:04)
[2020-05-18] MEDS: ASPIRIN 81 MG ECTAB PO SCH (09:05)
[2020-05-18] MEDS: INSULIN ASPART 100 UNITS/ML 3 ML PEN SC SCH ×3 (09:05→18:10)
[2020-05-18] MEDS: INSULIN HUMAN NPH SC SCH (09:05)
--- NOTE | 2020-05-18 09:45 | XRay Report ---
XR chest 1V portable HISTORY: Shortness of breath. f/u COVID, CHF COMPARISON: Chest 05/06/2020. FINDINGS: No pneumothorax. Trace left pleural effusion, unchanged. The heart has slightly decreased i n size. There is improvement in the interstitial thickening suggesting resolving congestive change. B ilateral mid to lower lung zone airspace opacities have slightly progressed. The upper lung zones rem ain clear. IMPRESSION: 1. Slight progression of the bilateral mid to lower lung zone hazy airspace opacities. This is consis tent with a pneumonia. 2. Cardiomegaly and the pulmonary vascular congestion has improved. ACT 112: Negative or not required by law. Electronically signed by: Ron Petit M.D. 05/18/2020 9:44 AM
--- NOTE | 2020-05-18 15:48 | Discharge Summary ---
Date of Service May 18, 2020 Admission HPI Per Admitting Provider Kemar Harden is a 79-year-old male who presents to the ER from [facility] inpatient rehabilitation due to shortness of breath, headache and new onset left bundle branch block. The patient reports he feels well without any chest pain or shortness of breath. He is unable to give me much of a timeline of events or why he is in the ER today. From [facility] notes: he was recently admitted to [facility] from April 26 after being found on the ground for approximately 30 minutes. He was having recurrent falls at home for 2 weeks prior to admission. In the emergency room he was noted to have new onset atrial flutter with rate in the 140s and febrile at 101.3. Chest x-ray demonstrated left pleural effusion and a left 7th rib fracture without pneumothorax. There was a small to moderate pericardial effusion. CT cervical spine and head were notably negative. Labs indicated KYLEE with rhabdomyolysis. He had a positive urinalysis and was started on IV Rocephin and azithromycin presumably to cover for a bacterial pneumonia. He was discharged to [facility] on May 03. He was initially doing well but had a sudden decline around 8:30am this morning with hypoxia, shortness of breath, altered mental state change - temp 99.7, O2 sats 86%. He was transported via EMS to the ER for further workup and treatment. Updated his over the phone. She reports no direct contact with the patient since his hospitalization in [place]. ER physician discussed with Dr Euceda and Dr Malcolm regarding new onset LBBB. Recommended holding digoxin. Trending troponins. Given asymptomatic and troponin negative no need for urgent catheterization. Principal Diagnosis COVID-19 Pneumonia, Digoxin toxicity, Acute on chronic diastolic CHF, Acute respiratory failure with hypoxia Discharge Exam Constitutional WD/WN, vitals as above Eyes + anicteric sclerae Neck trachea midline, no thyromegaly Respiratory normal respiratory effort, lungs clear to auscultation Cardiovascular RRR, no murmur, no edema Chest (Breasts) Chest: normal inspection of chest Gastrointestinal (Abdomen) normal bowel sounds, soft, nontender, no hepatosplenomegaly Musculoskeletal Extremities: extremities normal to inspection; no cyanosis and no clubbing Skin no rashes, warm and dry Neurologic moves all extremities and awake; no focal motor deficits Psychiatric A+Ox3, euthymic affect Lymphatic no lymphedema Discharge Data Allergies Allergy/AdvReac Type Severity Reaction Status Date / Time No Known Allergies Allergy Unverified 05/14/20 17:09 Consultations 05/14/20 15:00 ED Decision to Admit Stat 05/14/20 16:57 Consult Health Information Management Routine 05/14/20 18:12 Consult Cardiology Routine Ordered Studies CXR x 2 Hospital Course (1) Digoxin toxicity: Presented with hypoxia, fever, found to have Covid-19. Also found to have new onset LBBB and severe first-degree AV block, digoxin level 2.5 on admission Digibind was not given. Appreciate cardiology consultation Now improved-LBBB is now resolved, first-degree AV block is significantly reduced from previous. Discontinued digoxin-level is now down to 1.4 Discontinued propafenone May have been due to renal insufficiency Cardiology has now signed off-patient should follow-up with cardiology in 1 month after discharge (2) First degree atrioventricular block: As above, now improved (3) COVID-19: Unclear onset of symptoms but tested negative at [facility]. Sudden decline on the day of admission and tested positive here on 05/14 after having fever and hypoxia Has moderate-severe disease with pulse ox less than 94% Oxygen requirement now improved--> requiring 3LNC continuously on day of discharge Markers of inflammation and D-dimer are significantly elevated, but CRP has decreased from previous. Chest x-ray on admission with trace pleural effusions with bibasilar densities suggestive of atelectasis versus pneumonitis Continue dexamethasone 6 mg po daily x10-day course-last dose will be 05/23 COmpleted 5 day course of Remdesivir Convalescent plasma transfused on 05/14 -Continue Pepcid while on steroids -Continue supplemental O2 -hold home MTX while with COVID (4) Hypoxia: Secondary to Covid-19, as above, going home with O2 (5) Left bundle branch block: New onset since April 28. Thought to be secondary to digoxin toxicity and the use of propafenone-has now resolved as noted above with discontinuation of digoxin No acute chest pain Serially trended troponin and was negative x4. Echocardiogram with preserved LVEF 55-60%, septal motion consistent with conduction abnormality, no regional wall motion abnormalities noted, mild LVH, mild MR and TR, RVSP elevated at 30-40 mmHg Permanently discontinue digoxin and propafenone Appreciate cardiology consultation (6) Pulmonary edema: Treated as possible acute on chronic diastolic CHF in setting of new LBBB Low Na, heart healthy diet, fluid restrict 1800ml IV lasix 20mg IV was given x1 upon admission and gave another dose on 05/17--> significant improvement in oxygentation CXR improved pulm edema Daily weight is down 4.3 kg since admission (7) Elevated serum creatinine: Unclear baseline to know whether this is KYLEE. Hypervolemic on admission. Creatinine down from 1.5--> 1.26 (8) Atrial flutter: Paroxysmal. New diagnosis at [facility] admission several weeks ago. He has had no recurrence of atrial flutter during this admission Cardiology feels that that may have been lone atrial flutter in the setting of acute illness and pericardial effusion which is now resolved For now, but cardiology recommends reevaluating risk versus benefit of continuing long-term anticoagulation 1 month from now -Continue anticoagulation with Eliquis 5mg BID -Remain digoxin and propafenone. Cardiology also recommend starting Toprol-XL 12.5 mg once daily just in case he does have return of atrial flutter (9) Pericardial effusion: Noted in [facility], but none noted here on echocardiogram. - Monitor (10) Lactic acidemia: Suspect due to COVID-19, hypoxia. Resolved 2.1 -> 1.2 (11) HTN (hypertension): BP acceptable -dc home amlodipine as BPs low-normal and starting Toprol XL (12) Normocytic anemia: Unclear baseline. Hemoglobin here is low at 9.9 and stable from previous B12 and folate are normal, iron studies also normal transferrin saturation 29% Of note, he is on methotrexate which could cause anemia (13) Type 2 diabetes mellitus: HbA1C low at 5.4% -restart home metformin on dc (14) Glaucoma: - Lumigan eye drops QPM (15) Rheumatoid arthritis: Hold methotrexate while has Covid (16) DVT prophylaxis: Eliquis Disposition-stable for dc to home on home O2 Total Time Total Time Spent Total Time Spent (In Minutes): 45 min Total Time Includes: Examination of the Patient, Discharge Planning and Medication Reconciliation Discharge Plan Discharge Items Patient Disposition: Home - Home Health Services Reason For Visit: COVID-19 PNA Discharge Diagnosis: Digoxin toxicity, COVID-19 Pneumonia, Hypoxia Condition on Discharge: Fair Activity: As commented below Lifting: None Bathing: No limitations Exercise/Sports: Gradually increase as tolerated Non-emergency contact: Primary Care Provider and Assistant Associate Professor Call non-emergency contact if: you have any medication questions, your symptoms worsen and you have a fever Follow-up/Referrals: Haris Malcolm MD [Physician] - 06/21/20 9:00 am (Follow up in 1 month with the Assistant Associate Professor) [facility] [Non-Staff] - Diet: Carb Consistent or DM2 and Heart Healthy Fluids: 1800ml (7 cups) Addtl Attending Provider Instructions: Continue on the dexamethasone for 5 more days-this is a steroid to treat your COVID pneumonia. You completed a 5 day course of Remdesevir for the COVID and also received convalescent plasma. You are still requiring 3L of oxygen via nasal cannula at all times. You had electrical conduction problems of the heart due to the digoxin and propafenone medications and these were STOPPED. You were started on a new medication for the heart called metoprolol instead. You should also continue on Eliquis for your blood thinner to prevent stroke. Follow up with the Assistant Associate Professor in 1 month. Follow up with your PCP within 1-2 weeks also. You should also NOT TAKE your methotrexate this week until you are recovered from your COVID. Home Isolation COVID-19 Instructions The following information about Home Isolation is from the CDC Website: https://www.cdc.gov/coronavirus/2019-ncov/hcp/duxxqiwp-mmwjbtx-aansiv.html Stay home except to get medical care People who are mildly ill with COVID-19 are able to isolate at home during their illness. You should restrict activities outside your home, except for getting medical care. Do not go to work, school, or public areas. Avoid using public transportation, ride-sharing, or taxis. Separate yourself from other people and animals in your home People: As much as possible, you should stay in a specific room and away from other people in your home. Also, you should use a separate bathroom, if available. Animals: You should restrict contact with pets and other animals while you are sick with COVID-19, just like you would around other people. Although there have not been reports of pets or other animals becoming sick with COVID-19, it is still recommended that people sick with COVID-19 limit contact with animals until more information is known about the virus. When possible, have another member of your household care for your animals while you are sick. If you are sick with COVID-19, avoid contact with your pet, including petting, snuggling, being kissed or licked, and sharing food. If you must care for your pet or be around animals while you are sick, wash your hands before and after you interact with pets and wear a face mask. Call ahead before visiting your doctor If you have a medical appointment, call the healthcare provider and tell them th at you have or may have COVID-19. This will help the healthcare providers office take steps to keep other people from getting infected or exposed. Wear a face mask You should wear a face mask when you are around other people (e.g., sharing a room or vehicle) or pets and before you enter a healthcare providers office. If you are not able to wear a face mask (for example, because it causes trouble breathing), then people who live with you should not stay in the same room with you, or they should wear a face mask if they enter your room. Cover your coughs and sneezes Cover your mouth and nose with a tissue when you cough or sneeze. Throw used tissues in a lined trash can. Immediately wash your hands with soap and water for at least 20 seconds or, if soap and water are not available, clean your hands with an alcohol-based hand relish blender that contains at least 60% alcohol. Clean your hands often Wash your hands often with soap and water for at least 20 seconds, especially after blowing your nose, coughing, or sneezing; going to the bathroom; and before eating or preparing food. If soap and water are not readily available, use an alcohol-based hand relish blender with at least 60% alcohol, covering all surfaces of your hands and rubbing them together until they feel dry. Soap and water are the best option if hands are visibly dirty. Avoid touching your eyes, nose, and mouth with unwashed hands. Avoid sharing personal household items You should not share dishes, drinking glasses, cups, eating utensils, towels, or bedding with other people or pets in your home. After using these items, they should be washed thoroughly with soap and water. Clean all high-touch surfaces everyday High touch surfaces include counters, tabletops, doorknobs, bathroom fixtures, toilets, phones, keyboards, tablets, and bedside tables. Also, clean any surfaces that may have blood, stool, or body fluids on them. Use a household cleaning spray or wipe, according to the label instructions. Labels contain instructions for safe and effective use of the cleaning product including precautions you should take when applying the product, such as wearing gloves and making sure you have good ventilation during use of the product. Monitor your symptoms Seek prompt medical attention if your illness is worsening (e.g., difficulty breathing).Beforeseeking care, call your healthcare provider and tell them that you have, or are being evaluated for, COVID-19. Put on a face mask before you enter the facility. These steps will help the healthcare providers office to keep other people in the office or waiting room from getting infected or exposed. Ask your healthcare provider to call the local or state health department. Persons who are placed under active monitoring or facilitated self- monitoring should follow instructions provided by their local health department or occupational health professionals, as appropriate. When working with your local health department check their available hours. If you have a medical emergency and need to call 911, notify the dispatch personnel that you have, or are being evaluated for COVID-19. If possible, put on a face mask before emergency medical services arrive. Discontinuing home isolation Patients with confirmed COVID-19 should remain under home isolation precautions until the risk of secondary transmission to others is thought to be low. The dec ision to discontinue home isolation precautions should be made on a bodx-fe-uveo basis, in consultation with healthcare providers and [facility] and local health departments. Pending Studies at Discharge: No Stand-Alone Forms: [facility] Medications and DC Order Prescriptions: New sodium chloride [Saline Mist] 0.65 % Aerosol,[place] 2 spray NA PRN PRN (Reason: nasal congestion) Qty: 15 RF: 0 dexamethasone 6 mg tablet 6 mg PO DAILY Qty: 5 RF: 0 metoprolol succinate [Toprol XL] 25 mg tablet extended release 24 hr 12.5 mg PO DAILY Qty: 15 RF: 0 Continued gabapentin 300 mg capsule 300 mg PO TID RF: 0 metformin 500 mg tablet extended release 24 hr 500 mg PO DAILY RF: 0 Lumigan 0.01 % drops 1 drp OPB QPM RF: 0 aspirin 81 mg Capsule,Delayed Release(Dr/Ec) 81 mg PO DAILY RF: 0 methotrexate sodium 2.5 mg Tablet 17.5 mg PO WK RF: 0 folic acid 1 mg Tablet 1 mg PO DAILY RF: 0 acetaminophen 325 mg Capsule 325 mg PO QID PRN (Reason: Pain) RF: 0 famotidine 20 mg Tablet 20 mg PO BID 5 Days Qty: 10 RF: 0 Eliquis 5 mg tablet 5 mg PO BID Qty: 60 RF: 0 Discontinued amlodipine 5 mg tablet 5 mg PO DAILY RF: 0 digoxin 250 mcg (0.25 mg) tablet 250 mcg PO DAILY RF: 0 potassium chloride 10 mEq tablet,ER particles/crystals 10 meq PO DAILY RF: 0 propafenone 150 mg Tablet 300 mg PO Q8H RF: 0 melatonin 3 mg Tablet 3 mg PO HS RF: 0 cephalexin 500 mg Tablet 500 mg PO QID RF: 0 docusate sodium 100 mg Tablet 100 mg PO BID RF: 0 Humulin R Regular U-100 Insuln 100 unit/mL Cartridge 0 unit SUBCUT ACHS RF: 0 zinc sulfate 220 (50) mg Capsule 220 mg PO DAILY RF: 0 ascorbic acid (vitamin C) 500 mg Capsule 500 mg PO BID RF: 0 bisacodyl 10 mg Suppository 10 mg ND DAILY PRN (Reason: Constipation) RF: 0 Discharge Orders: Discharge Order (Routine); Ordered 05/18/20 Ordered By: Tamra Garcia Admission Data Admit Date/Time: 05/14/20 16:41 Attending Provider: Tamra Garcia Admit Provider: Roman Kauffman Primary Care Provider: Gualberto Atwood Other Providers: Ariel Crawford ; Haris Malcolm ; Roman Kauffman ; [facility] Other Interventions: Discharge Summary Assessment (RN) Last Done: 05/18/20 15:52 Coding Level of Care Code D/C Day Management >30 mins Diagnoses Digoxin toxicity T46.0X1A First degree atrioventricular block I44.0 COVID-19 U07.1 Hypoxia R09.02 Left bundle branch block I44.7 Pulmonary edema J81.1 Elevated serum creatinine R79.89 Atrial flutter I48.92 Pericardial effusion I31.3 Lactic acidemia E87.2 HTN (hypertension) I10 Normocytic anemia D64.9 Type 2 diabetes mellitus E11.9 Glaucoma H40.9 Rheumatoid arthritis M06.9 DVT prophylaxis Z29.9
[2020-05-18] MEDS: REMDESIVIR 100 MG in SODIUM CHLORIDE 0.9% 230 ML IV SCH (16:07)
[2020-05-19] MEDS ORDERED: metHOTREXate sodium 2.5 MG TAB PO SCH (09:00)
== END 2020-05-18 20:18 | disposition home health service (06) | DRG 177 ==
LOC: ED 12:01 → SUATTDRO 16:41 → EDINP 16:41 → 2S 21:20